=== PATIENT | male | born 1970 | race Caucasian/White ===

== ENCOUNTER 2019-12-12 20:05 | Emergency (ER) | payer MEDICARE, MEDICAID, SELFPAY ==
[2019-12-12 20:06] VITALS: BP 162/106; PULSE 65; RESP 18; TEMP 36.3; O2SAT 100; BMI 35.7
--- NOTE | 2019-12-12 20:25 | CT_ITS ---
STUDY: CT BRAIN WITHOUT CONTRAST REASON FOR EXAM: Male, 49 years old. SEIZURE, PT LIVES IN [facility] AND HAD SEIZURE WHILE IN SHOWER, FELL AND HIT HEAD, HAD 7 SEIZURES, PT ON MEDS FOR SEIZURES, PT HAD ACTIVE SEIZING WHILE ON CT TABLE RADIATION DOSAGE (If Supplied By Facility): CTDIvol = ( 44.99 ) mGy, DLP = ( 1201.06 ) mGycm TECHNIQUE: Transaxial CT imaging of the brain was performed without administration of intravenous contrast material. Individualized dose optimization techniques were used for this CT. COMPARISON: No relevant priors. FINDINGS: Normal soft tissue structures. Normal calvarium. Normal size ventricles and extra-axial spaces for the patient''s age. Normal white matter tracts of the cerebral hemispheres. Normal basal ganglia and thalami. Normal brainstem. Normal cerebellum. There is no intracranial hemorrhage. There are no findings of an acute ischemic infarction. Normal visualized paranasal sinuses. CT/Brain/Head without Contrast IMPRESSION: Normal unenhanced CT scan of the brain. Electronically Signed: Wyatt Ellis MD at 22:19 EDT , Service support ,
[2019-12-12] MEDS: LORazepam 2 MG/ML Syringe 1 MG IV ×2 (22:17→22:47)
[2019-12-12 22:18] LABS: Absolute Lymphocyte Count 1.25 X10^3/uL (0.83-4.51); Absolute Neutrophil Count 5.9 X10^3/uL (2.0-7.7); Basophil# 0.03 X10^3/uL; Basophil% 0.4 % (0-1); Hemoglobin 13.5 g/dL (13.0-16.5); Lymphocyte # 1.25 X10^3/ul (4.0); Lymphocyte % 15.6 % (19-41); Mean Corp Hgb Conc 34.6 g/dL (32-36); Mean Corpuscular Hgb 29.8 pg (27.0-32.0); Mean Corpuscular Volume 86.1 fL (80-94); Mean Platelet Vol. 8.7 fl (6.2-12.0); NRBC Flagged by Analyzer 0 % (0-5); Neutrophil # 5.87 X10^3/uL (2.7-7.7); Neutrophil % 73.1 % (47-70); Platelet Count 158 K/mm3 (150-450); RBC Distribution Width CV 11.9 % (11.6-14.6); RBC Distribution Width SD 37.2 fl (35.1-43.9); Red Blood Count 4.53 M/mm3 (4.6-6.2)
[2019-12-12 22:19] VITALS: PULSE 81; RESP 16
--- NOTE | 2019-12-12 22:39 | RAD_ITS ---
STUDY: X-RAY - BILATERAL RIBS WITH CHEST REASON FOR EXAM: Male, 49 years old. S/P SEIZURES -- C/O RIB PAIN -- BEST IMAGES POSSIBLE, PATIENT UNCOOPERATIVE TECHNIQUE - RIBS: 4 view(s) of the ribs. TECHNIQUE - CHEST: Single frontal view of the chest. COMPARISON: None. FINDINGS - RIBS : Normal visualized ribs without a demonstrated fracture. FINDINGS - CHEST: The lungs are clear and expanded. There is no demonstrated pleural abnormality. Normal size heart. Normal mediastinum and nolvia. Normal visualized pulmonary arteries. Normal visualized aortic arch and descending thoracic aorta. Normal visualized thoracic spine. Normal visualized ribs, clavicles, and shoulders. There is no demonstrated abnormality of the visualized soft tissue structures of the upper abdomen. RAD/Ribs Khalif Min 4V w/PA Chest IMPRESSION: RIBS: Normal x-ray examination of the bilateral ribs. CHEST: Normal x-ray examination of the chest. Electronically Signed: Wyatt Ellis MD at 23:38 EDT , Service support ,
[2019-12-12 22:41] LABS: ALB/GLOB Ratio 1.1 RATIO (0.9-2.4); AST(SGOT) 15 U/L (15-37); Alanine Aminotransfer ALT/SGPT 24 U/L (16-61); Albumin, Serum 3.9 g/dL (3.2-5.0); Alkaline Phosphatase 124 U/L (45-117); Anion Gap 6 (5-15); BUN 7 mg/dL (7-18); BUN/Creat Ratio 9.1 RATIO (10-20); Calcium,Total 8.5 mg/dL (8.5-10.1); Chloride 92 mmol/L (98-107); Creatinine, Serum 0.77 mg/dL (0.70-1.30); EST Glomerular Filtration Rate 114 mL/min (>60); Est Glom Filt Rate - Afr Amer 137 mL/min (>60); Estimated Creatinine Clearance 142.47 ml/min; Globulin 3.4 g/dL (2.2-4.2); Glucose 96 mg/dL (74-106); Potassium 3.9 mmol/L (3.5-5.1); Protein, Total 7.3 g/dL (6.4-8.2); Sodium Level 123 mmol/L (136-145)
[2019-12-12 22:45] LABS: Valproic Acid (Depakene) Level < 3 ug/mL (50-100)
[2019-12-12 23:29] VITALS: BP 148/97
[2019-12-12] MEDS: Lacosamide 100 MG Tablet 200 MG PO (23:50)
[2019-12-12] MEDS: ZONISAMIDE 100 MG CAPSULE 300 MG PO (23:51)
[2019-12-12] MEDS: carBAMazepine 200 MG Tablet PO (23:52)
[2019-12-13 00:24] LABS: Carbamazepine (Tegretol) 7.5 ug/mL (4.0-12.0)
[2019-12-13] MEDS: Donepezil HCl 10 MG Tablet PO (00:26)
--- NOTE | 2019-12-13 00:59 | ED.DCSUM_ITS ---
- ER Visit Summary Date of Service: 12/13/19 Chief Complaint: [Seizure] History of Present Illness: The patient is a 49 M [presents to the emergency department with seizures that started this afternoon while patient was getting a shower. He apparently fell in the shower and started to have convulsions. Shalom gibbs did hit his head and scraped his back. Twitching of arms and legs as well as eyes lasted 30 seconds or so. He has had multiple seizures since about 6:30 PM the longest of which lasted over 30 seconds and he did receive Lorazepam. Patient continues to have eye blinking and intermittent focal twitching of his extremities. Patient does have history of seizure disorder as well as depression anxiety. Patient denies any significant injury other than he will say ow from time to time. No recent illness. Patient has been admitted to [facility] in [place] where his neurologist take care of him. Per patient's sister this amount of seizure activity is unusual.] Physical Examination: [HEENT-PERRLA, EOMI. Cranial nerves II through XII grossly intact. TMs clear. Mucous membranes moist. No adenopathy. No external evidence of trauma to his head. No C-spine tenderness on palpation. Cardiovascular-regular rate and rhythm without murmur or ectopy Lungs-clear to auscultation, chest wall stable without crepitus or subcu emphysema Abdomen-normoactive bowel sounds, soft, nontender, no rebound or rigidity, no peritoneal signs. Back exam-patient has some superficial abrasion to the right posterior ribs with some tenderness palpation. Patient also some tenderness over the left posterior ribs. Neuro exam-patient does have blinking that is frequent from below both eyes. Patient has some intermittent twitching of the left upper extremity and some cpsq-[id number]-[id number] activity. Extremities-intact ?4, normal range of motion, normal pulses, atraumatic] Test Results: [CT scan of the brain without contrast was unremarkable. X-rays of the chest and ribs obtained showed no fractures or pneumothorax. EKG obtained arrival shows sinus rhythm with a ventricular rate of 69 bpm with a right bundle branch block. Chemistries showed a sodium 123, potassium 3.9, chloride 92, CO2 25, glucose 96, BUN 7 and creatinine 0.77. CBC with d ifferential showed a white count of 8.0, hemoglobin 13.5, hematocrit 39, plates 158. LFTs were unremarkable. Valproic acid level was less than 3. Tegretol level ordered and pending] Emergency Department Course and Treatment: [The line was established. Patient was given Ativan 1 mg IV followed by second dose of Ativan. Patient also was given his evening time medications including Tegretol and zonisamide and Vimpat.] Treatment Plan: [Patient's eye twitching did slow down but continued. At this point I am concerned about status epilepticus and I am concerned about his hyponatremia. Being that we do not have 24-hour EEG monitoring capability and in-house neurology availability was felt that patient would benefit from trans [facility] to [facility] where he normally gets his neurology care. Patient's family members in agreement.] Disposition: [Transfer to [facility]] Impression: [Seizure-status epilepticus Hyponatremia] This note was generated with [id number] dictation software. It may contain incorrect words, spelling, and punctuation that were not noted in review of the chart prior to signing ED Disposition - Plan for ED Patient: Referrals: Prosper Hooks MD [Primary Care Provider] -
[2019-12-13 01:16] VITALS: BP 164/91; PULSE 72; RESP 16; TEMP 36.9; O2SAT 98
[2019-12-13] MEDS: LORazepam 2 MG/ML Syringe 1 MG IV (01:29)
== END 2019-12-13 02:31 | disposition short-term general hospital (02) ==
PROVIDERS: Emergency Provider Emergency Medicine; PCP Family Medicine
DX: G40.909 Epilepsy, unspecified, not intractable, without status epilepticus (principal); E87.1 Hypo-osmolality and hyponatremia; F32.9 Major depressive disorder, single episode, unspecified
CPT/HCPCS: 70450; 71111; 80053; 80156; 80164; 85025; 96374; 96375; 99285; A4216

== ENCOUNTER 2020-01-04 16:57 | Emergency (ER) | payer MEDICARE, MEDICAID, SELFPAY ==
[2020-01-04 16:59] VITALS: BP 164/100; PULSE 56; RESP 15; TEMP 36.6; O2SAT 99; BMI 39.4
--- NOTE | 2020-01-04 17:19 | EKG12_ITS ---
Test Reason : SEIZURE Blood Pressure : / mmHG Vent. Rate : 071 BPM Atrial Rate : 071 BPM P-R Int : 200 ms QRS Dur : 090 ms QT Int : 388 ms P-R-T Axes : 068 077 073 degrees QTc Int : 421 ms Normal sinus rhythm Normal ECG Confirmed by MIRIAM PAZ, ANA LAURA ([id number]), photo editor ROSEANN FRANCOIS ([id number]) on 01/18/2020 9:39:49 A M Referred By: CM Confirmed By:ALIN PINEDA MD
--- NOTE | 2020-01-04 17:19 | CT_ITS ---
STUDY: CT BRAIN WITHOUT CONTRAST REASON FOR EXAM: Male, 49 years old. Seizures RADIATION DOSAGE (If Supplied By Facility): CTDIvol = ( 44.99 ) mGy, DLP = ( 1693.46 ) mGycm TECHNIQUE: Transaxial CT imaging of the brain was performed without administration of intravenous contrast material. Individualized dose optimization techniques were used for this CT. COMPARISON: 12 December 2019 FINDINGS: Brain parenchyma is without focal lesions, mass effect, acute intracranial hemorrhage, extra parenchymal fluid collections, hydrocephalus or herniation. The skull is intact. CT/Brain/Head without Contrast IMPRESSION: 1. Normal CT brain. Electronically Signed: Oksana Brown, at 18:19 EDT Tel , Service support ,
--- NOTE | 2020-01-04 17:31 | ED.DCSUM_ITS ---
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 Patient had increased frequency of seizures throughout the day today. He had 2 this morning and the start around 3 PM he started having having increased frequency. Patient will have deviation of his eyes up into the right and contract of his body. They last for anywhere between 15 and 45 seconds. They are not generalized tonic-clonic. They are occurring every 5 minutes or so now. Patient did receive his rescue medication intranasally with no improvement. Patient does have some medication changes for his seizure medications. His neurologist is up at [facility]. Normally patient has a seizure every week or so. His sister who is his medical decision-maker is on the way in. Patient is otherwise been in his normal state of health. No reports of any recent falls or trauma. Patient does not have any significant postictal period afterwards and returned back to his baseline immediately. Past Medical History - Allergies and Home Meds Allergies/Adverse Reactions: Allergies divalproex sodium [From Depakote] Allergy (Verified 01/04/20 16:58) PT UNSURE OF REACTION felbamate [From Felbatol] Allergy (Verified 01/04/20 16:58) PT UNSURE OF REACTION Primary Care Physician: Prosper Hooks MD [Primary Care Provider] - Past Medical History: - - Dementia, seizure disorder Lives: - - nursing home Smoking Status: Unknown if ever smoked Review of Systems General: Denies: Chills, Fever, Sweats Eyes: Denies: Visual changes - bilaterally, Diplopia ENT: Denies: Rhinorrhea, Sore throat Cardiovascular: Denies: Chest pain, Palpitations Respiratory: Denies: Dyspnea, Cough, Dyspnea on exertion Gastrointestinal: Denies: Abdominal pain, Nausea, Vomiting, Diarrhea, Melena, Hematochezia Genitourinary: Denies: Dysuria, Hematuria, Frequency Musculoskeletal: Denies: Back pain, Extremity Pain Skin: Denies: Rash, Wounds Neurological: Reports: - - Seizures. Denies: Headache, Weakness, Numbness Physical Exam Vital Signs/Narrative: Vital Signs Temp Pulse Resp BP Pulse Ox 01/04/20 16:59 97.8 F 56 L 15 164/100 H 99 Inital Vital Signs reviewed: Yes General: Well nourished, Well developed, Obese, No Acute Distress Head: Normocephalic, Atraumatic Eyes: Perrl, EOMI ENT: Moist mucous membranes, No rhinorrhea Neck: Supple, Nontender, No JVD Cardiovascular: Regular rate, Regular rhythm, No murmurs Respiratory: No distress, CTA bilaterally, Chest nontender Abdomen: Soft, Nontender, Nondistended, Normal bowel sounds Back: Nontender, Normal Inspection Extremities: Nontender, No edema Skin: Normal color, No rash Neurological: Alert, Cranial nerves II-XII grossly intact, Normal Strength, Normal Sensation, Disoriented - At baseline Psychological: Normal affect, Normal Mood Diagnostic/Tx/Re-eval Chest X-Ray - ED: 1 View, Read by ED Physician, Read by Radiologist, No Acute Disease Clinical Impression(s) from Imaging Studies Brain CT 01/04/20 17:19 IMPRESSION: 1. Normal CT brain. Electronically Signed: Oksana Brown at 18:19 EDT Tel , Service support , Chest X-Ray 01/04/20 18:03 IMPRESSION: Normal x-ray examination of the chest. Electronically Signed: Oksana Brown, at 18:17 EDT Tel , Service support , Laboratory Data 01/04/20 01/04/20 01/04/20 17:25 17:25 17:45 WBC 6.1 RBC 4.32 L Hgb 12.9 L Hct 38.6 L MCV 89.4 MCH 29.9 MCHC 33.4 RDW Std Deviation 39.8 RDW Coeff of Aria 12.2 Plt Count 201 MPV 9.2 Immature Gran % (Auto) 0.700 Neut % (Auto) 73.4 H Lymph % (Auto) 15.3 L [place] % (Auto) 9.9 Eos % (Auto) 0.2 Baso % (Auto) 0.5 Absolute Neuts (auto) 4.5 Absolute Lymphs (auto) 0.94 Nucleated RBC % 0 Sodium 133 L Potassium 4.2 Chloride 100 Carbon Dioxide 28.0 Anion Gap 5 BUN 7 Creatinine 0.84 Estim Creat Clear Calc 116.76 Est GFR (MDRD) Af Amer 124 Est GFR (MDRD) Non-Af 102 BUN/Creatinine Ratio 8.3 L Glucose 101 Calcium 8.7 Urine Color Yellow Urine Clarity Sl. Cloudy Urine pH 7.0 Ur Specific [place] 1.010 Urine Protein Negative Urine Glucose (UA) Normal Urine Ketones Negative Urine Occult Blood Negative Urine Nitrite Negative Urine Bilirubin Negative Urine Urobilinogen Normal Ur Leukocyte Esterase Negative Urine RBC 0 SEEN Urine WBC 0 SEEN Ur Squamous Epith Cells 0-5 SEEN Urine Bacteria 0 SEEN Urine Mucus 0 SEEN - Rhythm Strip Rhythm Strip: Sinus Rhythm Rate: 71 Ectopy: None - EKG Initial EKG Interpretation: Sinus Rhythm, - - Sinus rhythm at a rate of 71 Normal axis Normal intervals Normal ST segments - Medical Decision Making Patient is evaluated for increased frequency of seizures. His seizures appear to be partial in nature. Patient has multiple witnessed seizures in the ER despite receiving IV Ativan. He does require redose of IV Ativan. In between he does return to his neurologic baseline. nursing home and sister state that this is not normal for him to have this many seizures. Metabolic work-up including a head CT is largely negative. The exact cause of his presentation/increased frequency of seizures not clear however I wonder if it could be related to his recent medication change. Discussed with neurology at [facility], Dr. Hearn, who will reluctantly accept the patient. She is concerned as patient was having frequent seizures even on the day he was discharged that this might actually be his baseline. Family is comfortable with plan of care however. Neurology does not recommend bolusing any further medications at this time. Patient is protecting his airway and does not require intubation for status epilepticus. ED Disposition - Plan for ED Patient: Disposition: [facility] - Main Diagnosis: Recurrent seizures Referrals: Prosper Hooks MD [Primary Care Provider] -
[2020-01-04] MEDS: LORazepam 2 MG/ML Syringe 1 MG IV (17:32)
[2020-01-04 17:39] LABS: Absolute Lymphocyte Count 0.94 X10^3/uL (0.83-4.51); Absolute Neutrophil Count 4.5 X10^3/uL (2.0-7.7); Basophil# 0.03 X10^3/uL; Basophil% 0.5 % (0-1); Eosinophil# 0.01 X10^3/uL; Eosinophils% 0.2 % (0-5); Hematocrit 38.6 % (40-54); Hemoglobin 12.9 g/dL (13.0-16.5); Lymphocyte # 0.94 X10^3/ul (4.0); Lymphocyte % 15.3 % (19-41); Mean Corp Hgb Conc 33.4 g/dL (32-36); Mean Corpuscular Hgb 29.9 pg (27.0-32.0); Mean Corpuscular Volume 89.4 fL (80-94); Mean Platelet Vol. 9.2 fl (6.2-12.0); Monocyte# 0.61 X10^3/uL; Monocyte% 9.9 % (0-10); NRBC Flagged by Analyzer 0 % (0-5); Neutrophil # 4.51 X10^3/uL (2.7-7.7); Neutrophil % 73.4 % (47-70); Platelet Count 201 K/mm3 (150-450); RBC Distribution Width CV 12.2 % (11.6-14.6); RBC Distribution Width SD 39.8 fl (35.1-43.9); Red Blood Count 4.32 M/mm3 (4.6-6.2); White Blood Count 6.1 K/mm3 (4.4-11.0)
[2020-01-04 17:50] VITALS: PULSE 62; RESP 17; O2SAT 99
[2020-01-04 17:50] LABS: Bacteria 0 SEEN /hpf (None Seen); Mucous, Urine 0 SEEN /hpf (<or=2+); Red Blood Cells-Urine 0 SEEN /hpf (0-5); White Blood Cells 0 SEEN /hpf (0-5)
[2020-01-04 18:00] LABS: Anion Gap 5 (5-15); BUN 7 mg/dL (7-18); BUN/Creat Ratio 8.3 RATIO (10-20); Calcium,Total 8.7 mg/dL (8.5-10.1); Chloride 100 mmol/L (98-107); Creatinine, Serum 0.84 mg/dL (0.70-1.30); EST Glomerular Filtration Rate 102 mL/min (>60); Est Glom Filt Rate - Afr Amer 124 mL/min (>60); Estimated Creatinine Clearance 116.76 ml/min; Glucose 101 mg/dL (74-106); Potassium 4.2 mmol/L (3.5-5.1); Sodium Level 133 mmol/L (136-145)
--- NOTE | 2020-01-04 18:03 | RAD_ITS ---
STUDY: X-RAY CHEST REASON FOR EXAM: Male, 49 years old. SEIZURE TECHNIQUE: Frontal view of the chest COMPARISON: None. FINDINGS: The lungs are clear and expanded. There is no demonstrated pleural abnormality. Normal size heart. Normal mediastinum and nolvia. Normal visualized pulmonary arteries. Normal visualized aortic arch and descending thoracic aorta. Normal visualized thoracic spine. Normal visualized ribs, clavicles, and shoulders. There is no demonstrated abnormality of the visualized soft tissue structures of the upper abdomen. RAD/Chest 1 View (Portable) IMPRESSION: Normal x-ray examination of the chest. Electronically Signed: Oksana Brown, at 18:17 EDT Tel , Service support ,
[2020-01-04 18:16] LABS: Color, Urine Yellow (Yellow); Glucose, Dipstick Normal (Normal); Ketone-Dipstick Negative (Negative); Leukocyte Esterase-Dipstick Negative /ul (Negative); Nitrite-Dipstick Negative (Negative); Occult Blood-Urine Negative /ul (Negative); Protein-Dipstick Negative (Negative); Urine Bilirubin Dipstick Negative (Negative); Urine Clarity Sl. Cloudy (Clear); Urine Urobilinogen Normal (Normal)
[2020-01-04 18:30] LABS: Squamous Epithelial Cells - UA 0-5 SEEN /hpf (0-5)
[2020-01-04] MEDS: LORazepam 2 MG/ML Syringe IV (20:26)
[2020-01-04 20:30] VITALS: BP 155/69; PULSE 66; RESP 12; O2SAT 99
[2020-01-04 20:41] VITALS: BP 155/69; PULSE 66; RESP 12; O2SAT 99
--- NOTE | 2020-01-04 21:04 | ED.RN ---
sister reports pt had fall this am.
== END 2020-01-04 21:12 | disposition short-term general hospital (02) ==
LOC: ED 17:37
PROVIDERS: Emergency Provider Emergency Medicine; PCP Family Medicine
DX: G40.909 Epilepsy, unspecified, not intractable, without status epilepticus (principal); F03.90 Unspecified dementia, unspecified severity, without behavioral disturbance, psychotic disturbance, mood disturbance, and anxiety; E66.9 Obesity, unspecified; Z79.82 Long term (current) use of aspirin
CPT/HCPCS: 70450; 71045; 80048; 81001; 85025; 93005; 96374; 96376; 99283; 99285; A4216

== ENCOUNTER 2021-08-14 09:01 | Inpatient (IN) | payer MEDICARE, MEDICAID, SELFPAY ==
[2021-08-14] VITALS (13 sets, daily range): BP systolic 90–141; BP diastolic 54–84; PULSE 57–84; RESP 13–20; TEMP 36.1–36.6; O2SAT 91–98; BMI 37.3
--- NOTE | 2021-08-14 09:13 | EKG12_ITS ---
Test Reason : ALT LOC Blood Pressure : / mmHG Vent. Rate : 060 BPM Atrial Rate : 060 BPM P-R Int : 184 ms QRS Dur : 092 ms QT Int : 412 ms P-R-T Axes : 010 036 043 degrees QTc Int : 412 ms Normal sinus rhythm Normal ECG Confirmed by SOFIA TINOCO MD ([id number]), video effects editor MARGARITA ARMENTA ([id number]) on 08/15/2021 10:12:28 AM Referred By: CM Confirmed By:SOFIA TINOCO MD
--- NOTE | 2021-08-14 09:15 | RAD_ITS ---
STUDY: X-RAY CHEST REASON FOR EXAM: Male, 50 years old. cough TECHNIQUE: Single AP portable view of the chest. COMPARISON: 01/04/2020 FINDINGS: Or inspiration with some bibasilar atelectasis. There is no demonstrated pleural abnormality. There is moderate cardiac enlargement. Normal mediastinum and nolvia. Normal visualized pulmonary arteries. Normal visualized aortic arch and descending thoracic aorta. Normal visualized thoracic spine. Normal visualized ribs, clavicles, and shoulders. There is no demonstrated abnormality of the visualized soft tissue structures of the upper abdomen. RAD/Chest 1 View (Portable) IMPRESSION: Poor inspiration with some bibasilar atelectasis. Electronically Signed: Roberto Ibarra MD at 9:58 EDT ,
--- NOTE | 2021-08-14 09:16 | CT_ITS ---
STUDY: CT BRAIN WITHOUT CONTRAST REASON FOR EXAM: Male, 50 years old. confusion RADIATION DOSAGE (If Supplied By Facility): CTDIvol = ( 44.99 ) mGy, DLP = ( 829.85 ) mGycm TECHNIQUE: Transaxial CT imaging of the brain was performed without administration of intravenous contrast material. Individualized dose optimization techniques were used for this CT. COMPARISON: 01/04/2020 FINDINGS: Normal soft tissue structures. Normal calvarium. Normal size ventricles and extra-axial spaces for the patient''s age. Normal white matter tracts of the cerebral hemispheres. Normal basal ganglia and thalami. Normal brainstem. Normal cerebellum. There is no intracranial hemorrhage. There are no findings of an acute ischemic infarction. Normal visualized paranasal sinuses. CT/Brain/Head without Contrast IMPRESSION: Normal unenhanced CT scan of the brain. Electronically Signed: Roberto Ibarra MD at 9:51 EDT ,
--- NOTE | 2021-08-14 09:24 | EX.ED.DYSGE1 ---
HPI <CRISPIN Daniel - Last Filed: 08/14/21 14:54> History of Present Illness Chief Complaint: Alt LOC Narrative Narrative: 50-year-old male with history of MRDD who lives in a [facility], also history of seizures, hypertension, anxiety presents to the emergency department with altered mental status, weakness. Patient does have history of seizures, they are unsure he had a seizure today or not. However patient was more lethargic this morning, it took a long time for the [facility] to get him dressed which is abnormal, the patient was walking, took 5 steps and then collapsed. They are concerned secondary to his fatigue and lethargic. Denies any recent illnesses, denies any drug use, was alert and oriented and acting appropriate yesterday. PFS <CRISPIN Daniel - Last Filed: 08/14/21 14:54> [facility] Medical History (Updated 08/15/21 @ 14:[address] Harriet Mary, ) Anxiety Chronic anemia Chronic hyponatremia Dementia Depression Developmental disability Seizures Home Medications donepezil 5 mg PO DAILY@199912/12/19 [History Last Taken 01/03/20] escitalopram oxalate 20 mg PO DAILY@0812/12/19 [History Last Taken 01/04/20] ammonium lactate 1 applic TP BID 01/04/20 [History Last Taken 01/04/20] aspirin 81 mg PO DAILY@199901/04/20 [History Last Taken 01/03/20] Epidiolex 1 mg PO TID 08/14/21 [History Last Taken Unknown] cholecalciferol (vitamin D3) [Vitamin D3] 50 mcg PO DAILY 08/14/21 [History Last Taken Unknown] clobazam [Onfi] 20 mg PO DAILY 08/14/21 [History Last Taken Unknown] clobazam [Onfi] 30 mg PO QHS 08/14/21 [History Last Taken Unknown] docusate sodium 100 mg PO BID 08/14/21 [History Last Taken Unknown] lacosamide [Vimpat] 200 mg PO BID 08/14/21 [History Last Taken Unknown] lorazepam 1 mg PO DAILY PRN 08/14/21 [History Last Taken Unknown] meloxicam 15 mg PO DAILY 08/14/21 [History Last Taken Unknown] nystatin-triamcinolone 1 applic TOPICAL BID PRN 08/14/21 [History Last Taken Unknown] olopatadine 1 drp EACH EYE DAILY 08/14/21 [History Last Taken Unknown] rufinamide [Banzel] 800 mg PO BID 08/14/21 [History Last Taken Unknown] zonisamide 300 mg PO BID 08/14/21 [History Last Taken Unknown] Allergy/AdvReac Type Severity Reaction Status Date / Time divalproex sodium Allergy PT UNSURE Verified 01/04/20 16:58 [From Depakote] OF REACTION felbamate [From Felbatol] Allergy PT UNSURE Verified 01/04/20 16:58 OF REACTION Social History (Updated 08/14/21 @ 15:[address] Harriet Mary, DO) household members: other details: nursing home housing: other details: nursing home Smoking Status: Never smoker alcohol intake: never substance use type: does not use ROS <CRISPIN Daniel - Last Filed: 08/14/21 14:54> ROS ED ROS Narrative Due to the lethargy, mental capacity the patient, review of symptoms cannot be completed at this time EXAM <CRISPIN Daniel - Last Filed: 08/14/21 14:54> Physical Exam Narrative Exam Narrative: Vital signs reviewed. Patient is lethargic on exam. Blood pressure slightly low with 90s over 50s. Patient does open his eyes however does not answer which is abnormal for him. HEET: Head normocephalic atraumatic, TMs clear bilaterally. Posterior pharynx is clear, dry mucous membranes. Nares clear bilaterally. Neck: Supple with no lymphadenopathy or tenderness. No signs of meningismus, negative jolt sign. Cardiac: Regular rate and rhythm no murmurs gallops or rubs, equal peripheral pulses bilaterally. Respiratory: Lungs clear to auscultation bilaterally. No chest tenderness. Abdomen: Soft, nontender, nondistended. No abdominal bruit or pulsatile masses. No hepatosplenomegaly Extremities: No peripheral edema, no signs of gross trauma or deformity. Active full range of motion of all extremities. Neuro: Cranial nerves II through XII intact, no focal neurological deficits. Patient moving all extremities. Negative for any facial droop. Skin: Clean dry and intact with no rash, purpura, petechiae, vesicles or pustules. Backslash flank: No CVA tenderness, no midline spinal tenderness, no deformity. Psych: Normal mood and affect. No SI, HI or acute psychosis. Const Vital Signs: 08/14/21 09:03 08/14/21 09:07 08/14/21 09:16 Temperature 97.5 F L 97.9 F Temperature Source Temporal Temporal Pulse Rate 63 61 61 Respiratory Rate 14 14 16 Blood Pressure 90/58 L 90/58 L Blood Pressure Mean 68 68 Pulse Ox 91 92 92 Oxygen Delivery Method Room Air Room Air Room Air Oxygen Flow Rate (L/min) 08/14/21 10:02 08/14/21 10:07 08/14/21 11:00 Temperature 97.2 F L 97.2 F L Temperature Source Temporal Temporal Pulse Rate 61 62 59 L Respiratory Rate 13 15 16 Blood Pressure 117/80 117/80 137/79 H Blood Pressure Mean 92 92 98 Pulse Ox 98 98 98 Oxygen Delivery Method Room Air Room Air Nasal Cannula Oxygen Flow Rate (L/min) 2 Positive well nourished, well developed and obese General Appearance ED: well developed Nutritional Appearance: obese <Dr. Koki Thompson DO - Last Filed: 08/16/21 16:28> Physical Exam Const Vital Signs: 08/14/21 09:03 08/14/21 09:07 08/14/21 09:16 Temperature 97.5 F L 97.9 F Temperature Source Temporal Temporal Pulse Rate 63 61 61 Respiratory Rate 14 14 16 Blood Pressure 90/58 L 90/58 L Blood Pressure Mean 68 68 Pulse Ox 91 92 92 Oxygen Delivery Method Room Air Room Air Room Air Oxygen Flow Rate (L/min) 08/14/21 10:02 08/14/21 10:07 08/14/21 11:00 Temperature 97.2 F L 97.2 F L Temperature Source Temporal Temporal Pulse Rate 61 62 59 L Respiratory Rate 13 15 16 Blood Pressure 117/80 117/80 137/79 H Blood Pressure Mean 92 92 98 Pulse Ox 98 98 98 Oxygen Delivery Method Room Air Room Air Nasal Cannula Oxygen Flow Rate (L/min) 2 MDM <CRISPIN Daniel - Last Filed: 08/14/21 14:54> MDM MDM Narrative Medical decision making narrative: Patient arrives lethargic, slightly hypotensive, is arousable by his tactile stimuli. Patient arrives to the emergency department with altered mental status, lethargic, weakness. Patient did receive a full work-up, patient's chest x-ray showed poor inspiration with some bibasilar atelectasis, patient's brain CT showed a normal CT scan of the brain. Patient received multiple laboratory values, patient CBC was unremarkable, patient's chemistry showed some renal insufficiency with a creatinine of 1.56, GFR 50 with a lactic acid of 3.6. I do believe that this is causing some of the weakness. Patient's kidney function is worse. Patient remains lethargic. Family and I spoke at length, they would like him admitted up to [facility] secondary to his neurologist being there. I did speak with her neurologist, he agrees that this is not a neurology issue however he would like them to go to [facility], however they refused secondary to not having any neurology. Patient then was accepted to [facility], and due to the wait time, the patient be admitted here to the hospital. Patient will be admitted under Dr. Mary, patient's neurologic exam remains the same, patient still remains lethargic. Vital signs are stable. Patient was placed on 2 L of nasal cannula oxygen which did improve because the ABG showed slight hypoxia. Patient stable for admission Lab Data Attestation: I reviewed the patient's lab results. Labs: Laboratory Results - last 24 hr 08/14/21 08/14/21 08/14/21 09:20 09:20 09:20 WBC 9.2 RBC 4.14 L Hgb 12.5 L Hct 38.2 L MCV 92.3 MCH 30.2 MCHC 32.7 RDW Std Deviation 40.5 RDW Coeff of Aria 11.9 Plt Count 188 MPV 9.0 Immature Gran % (Auto) 1.000 H Neut % (Auto) 70.0 Lymph % (Auto) 13.6 L [place] % (Auto) 8.6 Eos % (Auto) 6.3 H Baso % (Auto) 0.5 Absolute Neuts (auto) 6.5 Absolute Lymphs (auto) 1.25 Nucleated RBC % 0 Sodium 133 L Potassium 3.3 L Chloride 98 Carbon Dioxide 25.0 Anion Gap 10 BUN 10 Creatinine 1.56 H Estim Creat Clear Calc 71.39 Est GFR (MDRD) Af Amer 61 Est GFR (MDRD) Non-Af 50 L BUN/Creatinine Ratio 6.4 L Glucose 108 H Lactic Acid 3.6 H* Calcium 9.0 Total Bilirubin 0.30 Direct Bilirubin 0.06 AST 14 L ALT 20 Alkaline Phosphatase 97 Ammonia Total Protein 7.0 Albumin 3.8 Globulin 3.2 Albumin/Globulin Ratio 1.2 Lipase 233 08/14/21 09:20 WBC RBC Hgb Hct MCV MCH MCHC RDW Std Deviation RDW Coeff of Aria Plt Count MPV Immature Gran % (Auto) Neut % (Auto) Lymph % (Auto) [place] % (Auto) Eos % (Auto) Baso % (Auto) Absolute Neuts (auto) Absolute Lymphs (auto) Nucleated RBC % Sodium Potassium Chloride Carbon Dioxide Anion Gap BUN Creatinine Estim Creat Clear Calc Est GFR (MDRD) Af Amer Est GFR (MDRD) Non-Af BUN/Creatinine Ratio Glucose Lactic Acid Calcium Total Bilirubin Direct Bilirubin AST ALT Alkaline Phosphatase Ammonia 26.0 Total Protein Albumin Globulin Albumin/Globulin Ratio Lipase ABG Data ABG results: ABG 08/14/21 10:00 Specimen Type ART Sample Site L Radial pH 7.40 Bicarbonate Actual 22.8 Total CO2 24 Base Excess -2 O2 Saturation 95 O2 % 21 ABG pCO2 36.8 ABG pO2 73 L David Test Positive Radiography Diagnostic Testing: Clinical Impression(s) from Imaging Studies Chest X-Ray 08/14/21 09:15 IMPRESSION: Poor inspiration with some bibasilar atelectasis. Electronically Signed: Roberto Ibarra MD at 9:58 EDT Reading Location ID and State: [id number] / [place] Tel , Service support , Brain CT 08/14/21 09:16 IMPRESSION: Normal unenhanced CT scan of the brain. Electronically Signed: Roberto Ibarra MD at 9:51 EDT , EKG Normal sinus rhythm: Attestation: I personally reviewed and interpreted this EKG as follows: Comments: Normal sinus rhythm, rate of 60 bpm OR interval 184 ms, QRS duration 92 ms, no acute ST elevation, no acute infarct noted. <Dr. Koki Thompson, DO - Last Filed: 08/16/21 16:28> [facility] Narrative Medical decision making narrative: I have personally performed a face to face assessment of the patient and have reviewed the ELYSIA Note. I performed a substantive portion of the visit including all aspects of the following. My garcia findings include: History is patient is a 50-year-old male with history of developmental delay and seizure disorder presenting for altered mental status and somnolence. Patient is presenting from [facility]. On arrival to the ER patient is obtunded and only responds to physical stimuli. No report of any falls or seizures. No signs of trauma on physical exam. GCS is 14. Clear breath sounds. Heart regular rate and rhythm. No focal neurologic deficits appreciated. A&O to self only. Work-up looking for cause of his altered mental status is performed. He remains hemodynamically stable. CBC is largely unremarkable. He has mild anemia of 12.5 which is nonspecific. He does have a slight left shift. Creatinine is elevated at 1.56. Do not have a prior to compare to. Patient clinically does appear dehydrated we will presume that this is acute. He has an elevated lactate of 3.6. Chest x-ray and CT the brain did not show any acute process. Family is requesting that we do not perform a straight catheterization and wait for him to urinate on his own. He is given IV fluids in the emergency room. There is no clear source of infection I suspect this is all dehydration related. Will defer antibiotics at this time. While family would like him admitted to [facility], they do not currently have a bed available so he is admitted to [facility] in the meantime. He remains hemodynamically stable in the emergency room. Other additions or changes: [None] Lab Data Attestation: I reviewed the patient's lab results. Labs: Laboratory Results - last 24 hr 08/14/21 08/14/21 08/14/21 09:20 09:20 09:20 WBC 9.2 RBC 4.14 L Hgb 12.5 L Hct 38.2 L MCV 92.3 MCH 30.2 MCHC 32.7 RDW Std Deviation 40.5 RDW Coeff of Aria 11.9 Plt Count 188 MPV 9.0 Immature Gran % (Auto) 1.000 H Neut % (Auto) 70.0 Lymph % (Auto) 13.6 L [place] % (Auto) 8.6 Eos % (Auto) 6.3 H Baso % (Auto) 0.5 Absolute Neuts (auto) 6.5 Absolute Lymphs (auto) 1.25 Nucleated RBC % 0 Sodium 133 L Potassium 3.3 L Chloride 98 Carbon Dioxide 25.0 Anion Gap 10 BUN 10 Creatinine 1.56 H Estim Creat Clear Calc 71.39 Est GFR (MDRD) Af Amer 61 Est GFR (MDRD) Non-Af 50 L BUN/Creatinine Ratio 6.4 L Glucose 108 H Lactic Acid 3.6 H* Calcium 9.0 Total Bilirubin 0.30 Direct Bilirubin 0.06 AST 14 L ALT 20 Alkaline Phosphatase 97 Ammonia Total Protein 7.0 Albumin 3.8 Globulin 3.2 Albumin/Globulin Ratio 1.2 Lipase 233 08/14/21 09:20 WBC RBC Hgb Hct MCV MCH MCHC RDW Std Deviation RDW Coeff of Aria Plt Count MPV Immature Gran % (Auto) Neut % (Auto) Lymph % (Auto) [place] % (Auto) Eos % (Auto) Baso % (Auto) Absolute Neuts (auto) Absolute Lymphs (auto) Nucleated RBC % Sodium Potassium Chloride Carbon Dioxide Anion Gap BUN Creatinine Estim Creat Clear Calc Est GFR (MDRD) Af Amer Est GFR (MDRD) Non-Af BUN/Creatinine Ratio Glucose Lactic Acid Calcium Total Bilirubin Direct Bilirubin AST ALT Alkaline Phosphatase Ammonia 26.0 Total Protein Albumin Globulin Albumin/Globulin Ratio Lipase ABG Data ABG results: ABG 08/14/21 10:00 Specimen Type ART Sample Site L Radial pH 7.40 Bicarbonate Actual 22.8 Total CO2 24 Base Excess -2 O2 Saturation 95 O2 % 21 ABG pCO2 36.8 ABG pO2 73 L David Test Positive Radiography Chest X-Ray - ED: 1 View, Read by ED Physician, Read by Radiologist and No Acute Disease Diagnostic Testing: Clinical Impression(s) from Imaging Studies Chest X-Ray 08/14/21 09:15 IMPRESSION: Poor inspiration with some bibasilar atelectasis. Electronically Signed: Roberto Ibarra MD at 9:58 EDT , Brain CT 08/14/21 09:16 IMPRESSION: Normal unenhanced CT scan of the brain. Electronically Signed: Roberto Ibarra MD at 9:51 EDT , Discharge Plan Dx/Rx/DC Orders Clinical Impression: Acute kidney injury, Encephalopathy, Acidosis, lactic, Acute dehydration Disposition Disposition: Acute Care Hospital [facility]
[2021-08-14 09:29] LABS: Absolute Lymphocyte Count 1.25 X10^3/uL (0.83-4.51); Absolute Neutrophil Count 6.5 X10^3/uL (2.0-7.7); Basophil# 0.05 X10^3/uL; Basophil% 0.5 % (0-1); Eosinophil# 0.58 X10^3/uL; Eosinophils% 6.3 % (0-5); Hematocrit 38.2 % (40-54); Hemoglobin 12.5 g/dL (13.0-16.5); Lymphocyte # 1.25 X10^3/ul (0.83-4.51); Lymphocyte % 13.6 % (19-41); Mean Corp Hgb Conc 32.7 g/dL (32-36); Mean Corpuscular Hgb 30.2 pg (27.0-32.0); Mean Corpuscular Volume 92.3 fL (80-94); Monocyte# 0.79 X10^3/uL; Monocyte% 8.6 % (0-10); NRBC Flagged by Analyzer 0 % (0-5); Neutrophil # 6.46 X10^3/uL (2.7-7.7); Platelet Count 188 K/mm3 (150-450); RBC Distribution Width CV 11.9 % (11.6-14.6); RBC Distribution Width SD 40.5 fl (35.1-43.9); Red Blood Count 4.14 M/mm3 (4.6-6.2); White Blood Count 9.2 K/mm3 (4.4-11.0)
[2021-08-14 09:46] LABS: ALB/GLOB Ratio 1.2 RATIO (0.9-2.4); AST(SGOT) 14 U/L (15-37); Alanine Aminotransfer ALT/SGPT 20 U/L (16-61); Albumin, Serum 3.8 g/dL (3.2-5.0); Alkaline Phosphatase 97 U/L (45-117); Anion Gap 10 (5-15); BUN 10 mg/dL (7-18); BUN/Creat Ratio 6.4 RATIO (10-20); Bilirubin, Direct 0.06 mg/dL (0.00-0.30); Chloride 98 mmol/L (98-107); Creatinine, Serum 1.56 mg/dL (0.70-1.30); EST Glomerular Filtration Rate 50 mL/min (>60); Est Glom Filt Rate - Afr Amer 61 mL/min (>60); Estimated Creatinine Clearance 71.39 ml/min; Globulin 3.2 g/dL (2.2-4.2); Glucose 108 mg/dL (74-106); Lipase 233 U/L (73-393); Potassium 3.3 mmol/L (3.5-5.1); Sodium Level 133 mmol/L (136-145)
[2021-08-14 09:55] LABS: Lactic Acid 3.6 mmol/L (0.4-1.9)
[2021-08-14] MEDS: 0.9% Normal Saline 1,000 ML 1000 ML IV (10:13)
[2021-08-14 11:10] LABS: Allen Test Positive; Base Excess -2 mmol/L (-2 to +2); Bicarbonate 22.8 mmol/L (22-26); Blood Gas Specimen Type ART; FI02 21; PO2 73 mmHG (75-100); SITE L Radial; SO2 95 % (95-99); Total Carbon Dioxide 24 mmol/L; pCO2 36.8 mmHg (35-45)
--- NOTE | 2021-08-14 11:42 | NURSING ---
CALLED [facility] THEY ARE WAITING TO HEAR BACK FROM DR STANLEY THE ADMITTING PHYSICIAN
--- NOTE | 2021-08-14 11:55 | ED.RN ---
pt told family that had to go to the bathroom pt more awake for longer periods but still needing cueing to remain on task and focused. knees wobbly when stood at bedside to use urinal but unable to void. back to bed and able to get legs back into bed on own and to scoot self up in bed. will monitor. pt perked up when asked if wanted to watch tv. still waiting on bed from [facility]
--- NOTE | 2021-08-14 14:26 | ED.RN ---
PT IV LEAKING AND NOTED TO BE INFILTRATED WITH MOD EMEMA. IV DC'D AND WARM COMPRESS APPLIED. PT UNABLE TO VOID. Talking clearer and drinking diet coke now asking for food.
--- NOTE | 2021-08-14 14:57 | HP.PCM.HOS_ITS ---
HPI - General HPI Narrative MICHAEL MAHONEY, is a 50 M who presented to the emergency department from the snf which she resides on 07/25/2021 with an altered level of consciousness. The patient has a known history of seizures and per his sister and niece who are at the bedside upon my exam he was having increased somnolence confusion, garbled speech, and generalized weakness today at his snf. He does have a history of seizures and is on a significant amount of medications for this however they are unclear whether or not he has had seizures today. He evidently was more lethargic this morning when he awoke and it took him a long time at the snf to get dressed which is atypical for him. He evidently was walking and took 5 steps then collapsed. Family and the snf were concerned about his fatigue and lethargy. Evidently yesterday he was alert and at his baseline functionally. He has no contacts of which they are aware. He is really unable to give me any history but was sitting up eating a ham sandwich upon my exam. Family states at baseline he is communicative and fairly functional. Vital signs emergency department showed a temperature of 97.5. Initial blood pressure was 90/58 but with IV fluids his pressure has improved to 127/84. Heart rate was 63, respiratory 16, and oxygen saturation was 98% on room air. His CBC shows a chronic stable anemia. No left shift is present. He does have a eosinophilia with a 6.3% eosinophil count. This appears to be different from baseline. An ABG was obtained with his mental status and was unremarkable with pH of 7.4 a PCO2 of 36.8 a PO2 of 73 on room air. His chemistry profile shows mild hyponatremia which is chronic for him. Current sodium is 133. Potassium was low at 3.3 and his serum creatinine was elevated at 1.56. His baseline serum creatinine runs from 0.7-0.9. His lactic acid was 3.6. His LFTs were unremarkable. His EKG shows normal sinus rhythm without any changes consistent with acute ischemia. Chest x-ray shows poor effort with some bibasilar atelectasis. CT of his head was unremarkable. Orthostatic vitals were unable to be performed secondary to patient's mental status. A UA was ordered and pending on admission as the patient had not been able to yet produce a urine and family did not want the patient straight cath. The patient was treated with IV fluids in the emergency department. Family desired transfer to [facility] as this is where his neurologist is located however the emergency department discussed the case with neurology and they did not feel neurology needed to really be involved and suspected that this was more related to dehydration and other pathology. The patient has been ac cepted for transfer by Dr. Stringer at [place] however no beds are currently available and we were contacted for admission in the meantime. Family does express that if he is clinically back to baseline they are okay with discharge from this institution, however if he is not clinically improve they prefer transfer to outside facility. [facility] Medical History (Updated 08/14/21 @ 15:[address] Harriet Mary, DO) Anxiety Chronic anemia Chronic hyponatremia Dementia Depression Developmental disability Seizures Home Medications donepezil 5 mg PO DAILY@199912/12/19 [History Last Taken 01/03/20] escitalopram oxalate 20 mg PO DAILY@79912/12/19 [History Last Taken 01/04/20] ammonium lactate 1 applic TP BID 01/04/20 [History Last Taken 01/04/20] aspirin 81 mg PO DAILY@199901/04/20 [History Last Taken 01/03/20] cannabidiol [Epidiolex] 1 mg PO TID 08/14/21 [History Last Taken Unknown] cholecalciferol (vitamin D3) [Vitamin D3] 50 mcg PO DAILY 08/14/21 [History Last Taken Unknown] clobazam [Onfi] 20 mg PO DAILY 08/14/21 [History Last Taken Unknown] clobazam [Onfi] 30 mg PO QHS 08/14/21 [History Last Taken Unknown] docusate sodium 100 mg PO BID 08/14/21 [History Last Taken Unknown] lacosamide [Vimpat] 200 mg PO BID 08/14/21 [History Last Taken Unknown] lorazepam 1 mg PO DAILY PRN 08/14/21 [History Last Taken Unknown] meloxicam 15 mg PO DAILY 08/14/21 [History Last Taken Unknown] nystatin-triamcinolone 1 applic TOPICAL BID PRN 08/14/21 [History Last Taken Unknown] olopatadine 1 drp EACH EYE DAILY 08/14/21 [History Last Taken Unknown] rufinamide [Banzel] 800 mg PO BID 08/14/21 [History Last Taken Unknown] zonisamide 300 mg PO BID 08/14/21 [History Last Taken Unknown] Allergy/AdvReac Type Severity Reaction Status Date / Time divalproex sodium Allergy PT UNSURE Verified 01/04/20 16:58 [From Depakote] OF REACTION felbamate [From Felbatol] Allergy PT UNSURE Verified 01/04/20 16:58 OF REACTION no significant family history no surgical history Social History (Updated 08/14/21 @ 15:[address] Harriet Mary, DO) household members: other details: intermediate housing: other details: intermediate Smoking Status: Never smoker alcohol intake: never substance use type: does not use ROS Review of Systems ROS Unobtainable: due to mental condition Vital Signs Vital Signs Vital Signs: 08/14/21 09:03 08/14/21 09:07 08/14/21 09:16 Temperature 97.5 F L 97.9 F Temperature Source Temporal Temporal Pulse Rate 63 61 61 Respiratory Rate 14 14 16 Blood Pressure 90/58 L 90/58 L Blood Pressure Mean 68 68 Pulse Ox 91 92 92 Oxygen Delivery Method Room Air Room Air Room Air Oxygen Flow Rate (L/min) 08/14/21 10:02 08/14/21 10:07 08/14/21 11:00 Temperature 97.2 F L 97.2 F L Temperature Source Temporal Temporal Pulse Rate 61 62 59 L Respiratory Rate 13 15 16 Blood Pressure 117/80 117/80 137/79 H Blood Pressure Mean 92 92 98 Pulse Ox 98 98 98 Oxygen Delivery Method Room Air Room Air Nasal Cannula Oxygen Flow Rate (L/min) 2 Weight Weight: 142.882 kg Body Mass Index (BMI) 37.3 Physical Exam Const alert, no apparent distress, healthy appearing and well nourished Constitutional Narrative: Obese middle-aged white male sitting up in bed eating a sandwich, sister and niece are at the bedside, patient is not really all that communicative right now however does answer a few questions, unable to get a good review of systems HEENT normocephalic, head/scalp atraumatic and moist oral mucous membranes HEENT Narrative: Oropharynx is small, Mallampati is 3, no thrush, hearing appears normal Eyes PERRL, EOMs intact bilaterally and conjunctivae normal Eyes Narrative: No scleral icterus Neck no lymphadenopathy, supple and no JVD Neck Narrative: Trachea midline Resp normal respiratory effort, no retractions, no use of accessory muscles and clear to auscultation bilaterally Auscultation: Negative for crackles, rales, rhonchi or wheezes Cardio regular rate, regular rhythm, S1 normal heart sound, S2 normal heart sound, no murmurs, no rub, no gallops, no clicks and no JVD GI normal to inspection, nondistended, normoactive bowel sounds, soft to palpation, non-tender and non-distended; Negative for hepatosplenomegaly Extremity no clubbing, cyanosis or edema Peripheral Pulses: Yes pulses 2+ throughout Skin no rashes or lesions noted, no wounds, skin turgor normal, no jaundice, no petechiae and no mottling Neuro CN's II-XII intact bilaterally, moves all extremities and no focal motor deficits Neuro Narrative: Generalized weakness with no focal deficits, per family speech is normalizing however somewhat garbled compared to baseline still Sensorium / Orientation: alert Results Lab / Micro Data Attestation: I reviewed the patient's lab results. Result Diagrams: 08/14/21 09:20 08/14/21 09:20 Labs: Laboratory Results - last 24 hr 08/14/21 09:20: WBC 9.2, RBC 4.14 L, Hgb 12.5 L, Hct 38.2 L, MCV 92.3, MCH 30.2, MCHC 32.7, RDW Std Deviation 40.5, RDW Coeff of Aria 11.9, Plt Count 188, MPV 9.0, Immature Gran % (Auto) 1.000 H, Neut % (Auto) 70.0, Lymph % (Auto) 13.6 L, [place] % (Auto) 8.6, Eos % (Auto) 6.3 H, Baso % (Auto) 0.5, Absolute Neuts (auto) 6.5, Absolute Lymphs (auto) 1.25, Nucleated RBC % 0 08/14/21 09:20: Sodium 133 L, Potassium 3.3 L, Chloride 98, Carbon Dioxide 25.0, Anion Gap 10, BUN 10, Creatinine 1.56 H, Estim Creat Clear Calc 71.39, Est GFR (MDRD) Af Amer 61, Est GFR (MDRD) Non-Af 50 L, BUN/Creatinine Ratio 6.4 L, Glucose 108 H, Calcium 9.0, Total Bilirubin 0.30, Direct Bilirubin 0.06, AST 14 L, ALT 20, Alkaline Phosphatase 97, Total Protein 7.0, Albumin 3.8, Globulin 3.2, Albumin/Globulin Ratio 1.2, Lipase 233 08/14/21 09:20: Lactic Acid 3.6 H* 08/14/21 09:20: Ammonia 26.0 Micro: Microbiology 08/14/21 09:50 Nasal Secretion SARS-CoV-2 & FLU Antigen (Rapid) - Final ABG Data ABG results: ABG 08/14/21 10:00 Specimen Type ART Sample Site L Radial pH 7.40 Bicarbonate Actual 22.8 Total CO2 24 Base Excess -2 O2 Saturation 95 O2 % 21 ABG pCO2 36.8 ABG pO2 73 L David Test Positive Radiology Impression Chest X-Ray 08/14/21 09:15 IMPRESSION: Poor inspiration with some bibasilar atelectasis. Electronically Signed: Roberto Ibarra MD at 9:58 EDT Reading Location ID and State: [id number] / [employer] Tel , Service support , Brain CT 08/14/21 09:16 IMPRESSION: Normal unenhanced CT scan of the brain. Electronically Signed: Roberto Ibarra MD at 9:51 EDT Reading Location ID and State: [id number] / [employer] Tel , Service support , Assessment & Plan Assessment/Plan (1) Hypokalemia: (2) Hyponatremia: (3) Acute kidney injury: (4) Encephalopathy: (5) Acidosis, lactic: (6) Acute dehydration: (7) Eosinophilia: PLAN: Acute metabolic encephalopathy -Etiology unclear at this point -Dehydration/possible UTI/history of seizure disorder -Appears markedly dry on admission compared to baseline renal function -UA is pending collection as patient has not yet been able to urinate and family does not want him straight cathed -We will start ceftriaxone empirically and discontinue if UA is not suggestive of infection -CT of the head is negative for any acute pathology -Rapid COVID and flu were negative -ABG was unremarkable -Monitor clinically however per family who was at the bedside on admission they indicate that he is improving since presentation Hypokalemia -P.o. replacement with 60 mill equivalents -Repeat BMP in a.m. -Check a.m. mag level JAYDON secondary to dehydration -Hold meloxicam -Baseline serum creatinine appears to be 0.7-0.9 -Current serum creatinine is 1.56 -Normal saline at 100 cc/h x 18 hours -Repeat BMP in a.m. -Patient evidently has issues with dehydration at baseline and this is a problem that they are currently working with his snf and correcting Lactic acidosis -Doubt sepsis or infectious etiology -Could also be related to seizure History of seizure disorder -? [place] Gestalt syndrome -Continue zonisamide -Continue Banzal -Continue Vimpat -Continue Onfi -Continue Epidiolex -Follows with neurology at [facility] -ER has talked to the neurologist that sees him primarily and based on the information they were given they do not feel that this is consistent with se izure pathology and suspect dehydration and possibly another etiology -Per family preference, they initially wanted transfer to a [facility] facility however review has no current available beds and we have not yet talked to hospitalist to accept for admission, family does indicate that they are okay with admission here and discharged from here if the patient clinically improves but if not they would like him transferred there. The patient has been accepted by Dr. Stringer who is a hospitalist. Osteoarthritis -Hold meloxicam with current JAYDON Obesity -Recommend weight loss -Complicates treatment, prognosis, outcomes Dementia -Continue donepezil Depression -Continue Lexapro DVT prophylaxis -Heparin 3 times daily -SCDs CODE STATUS -Full code as per discussion with sister in the emergency department Charges/Coding Visit Charges Inpatient E&M: 55952 Init Hosp L3
--- NOTE | 2021-08-14 15:28 | NURSING ---
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 dr. pinto in room for admission. report called to floor and no questions. pt awake in bed alert and eating sandwich and cookies. at times not interested in responding and keeps feeding self with no diff. noted other than tries to take too big at times
--- NOTE | 2021-08-14 15:50 | ED.RN ---
tried to do orthos but unable to production supervisor trainee place for long enough for check. no positive readings noted from laying to sitting however. home meds ran personally to pharmacy per renetta roland rn.
[2021-08-14] MEDS: 0.9% Normal Saline 1,000 ML 100 ML IV (17:05)
[2021-08-14] MEDS: Potassium Chloride Oral Tablet 20 MEQ 60 MEQ PO (17:05)
[2021-08-14] MEDS: Ceftriaxone 1 GM/50 ML BAG IV (18:13)
[2021-08-14] MEDS: CANNABIDIOL 100 MG/ML 350 MG PO ×2 (18:21→20:35)
[2021-08-14] MEDS: Lacosamide 100 MG Tablet 200 MG PO (20:36)
[2021-08-14] MEDS: ZONISAMIDE 100 MG CAPSULE 300 MG PO (20:38)
[2021-08-14] MEDS: Heparin Injection (Vial) 5,000 UNIT/ML VIAL 5000 UNIT SC (20:40)
[2021-08-14] MEDS: Aspirin E.C. 81 MG Tablet PO (20:40)
[2021-08-14] MEDS: Donepezil HCl 5 MG Tablet PO (20:40)
[2021-08-14] MEDS: Ammonium Lactate 225 gm Bottle 1 APPLIC TOPICAL (20:41)
[2021-08-14] MEDS: Docusate Sodium 100 MG Capsule PO (20:41)
[2021-08-15 02:10] VITALS: BP 128/82; PULSE 74; RESP 16; TEMP 36.6; O2SAT 97
[2021-08-15] MEDS: 0.9% Normal Saline 1,000 ML 100 ML IV (03:37)
[2021-08-15 03:59] VITALS: PULSE 82
[2021-08-15] MEDS: Heparin Injection (Vial) 5,000 UNIT/ML VIAL 5000 UNIT SC ×3 (05:43→21:31)
[2021-08-15 05:50] LABS: Absolute Lymphocyte Count 1.18 X10^3/uL (0.83-4.51); Absolute Neutrophil Count 4.2 X10^3/uL (2.0-7.7); Basophil# 0.04 X10^3/uL; Basophil% 0.7 % (0-1); Hematocrit 34.8 % (40-54); Hemoglobin 11.5 g/dL (13.0-16.5); Lymphocyte # 1.18 X10^3/ul (0.83-4.51); Lymphocyte % 19.2 % (19-41); Mean Corpuscular Hgb 30.5 pg (27.0-32.0); Mean Corpuscular Volume 92.3 fL (80-94); Mean Platelet Vol. 9.1 fl (6.2-12.0); Monocyte# 0.64 X10^3/uL; Monocyte% 10.4 % (0-10); NRBC Flagged by Analyzer 0 % (0-5); Neutrophil # 4.24 X10^3/uL (2.7-7.7); Platelet Count 155 K/mm3 (150-450); RBC Distribution Width CV 12.2 % (11.6-14.6); RBC Distribution Width SD 41.3 fl (35.1-43.9); Red Blood Count 3.77 M/mm3 (4.6-6.2); White Blood Count 6.1 K/mm3 (4.4-11.0)
[2021-08-15 06:11] LABS: Mucous, Urine 0 SEEN /hpf (<or=2+); Red Blood Cells-Urine 0 SEEN /hpf (0-5); Squamous Epithelial Cells - UA 0 SEEN /hpf (0-5)
[2021-08-15 06:17] LABS: Lactic Acid 0.7 mmol/L (0.4-1.9)
[2021-08-15 06:19] LABS: Color, Urine Yellow (Yellow); Glucose, Dipstick Normal (Normal); Ketone-Dipstick Negative (Negative); Leukocyte Esterase-Dipstick 25 /ul (Negative); Nitrite-Dipstick Negative (Negative); Occult Blood-Urine Negative /ul (Negative); Protein-Dipstick Negative (Negative); Urine Bilirubin Dipstick Negative (Negative); Urine Clarity Clear (Clear); Urine Urobilinogen Normal (Normal); Urine pH 6.5 (5.0 - 8.0)
[2021-08-15 06:29] LABS: AST(SGOT) 73 U/L (15-37); Alanine Aminotransfer ALT/SGPT 34 U/L (16-61); Alkaline Phosphatase 101 U/L (45-117); Anion Gap 5 (5-15); BUN 12 mg/dL (7-18); BUN/Creat Ratio 14.7 RATIO (10-20); Calcium,Total 7.9 mg/dL (8.5-10.1); Chloride 106 mmol/L (98-107); Creatinine, Serum 0.82 mg/dL (0.70-1.30); EST Glomerular Filtration Rate 106 mL/min (>60); Est Glom Filt Rate - Afr Amer 128 mL/min (>60); Estimated Creatinine Clearance 135.82 ml/min; Globulin 2.9 g/dL (2.2-4.2); Glucose 96 mg/dL (74-106); Magnesium 2.3 mg/dL (1.6-2.6); Phosphorus 2.8 mg/dL (2.5-4.9); Potassium 4.7 mmol/L (3.5-5.1); Protein, Total 5.9 g/dL (6.4-8.2); Sodium Level 134 mmol/L (136-145); Thyroid Stim Hormone (TSH) 0.97 uIU/mL (0.358-3.74)
[2021-08-15 06:29] LABS: Bacteria RARE /hpf (None Seen); White Blood Cells 0-5 SEEN /hpf (0-5)
[2021-08-15] MEDS: ZONISAMIDE 100 MG CAPSULE 300 MG PO ×2 (07:46→21:30)
[2021-08-15] MEDS: Escitalopram Oxalate 20 MG Tablet PO (07:48)
[2021-08-15] MEDS: Ammonium Lactate 225 gm Bottle 1 APPLIC TOPICAL ×2 (07:49→21:33)
[2021-08-15] MEDS: Docusate Sodium 100 MG Capsule PO ×2 (07:49→21:34)
[2021-08-15] MEDS: Cholecalciferol (VIT D3) 25 MCG TABLET (1,000 UNITS) 50 MCG PO (07:50)
[2021-08-15] MEDS: Lacosamide 100 MG Tablet 200 MG PO ×2 (07:56→21:38)
[2021-08-15] MEDS: CANNABIDIOL 100 MG/ML 350 MG PO ×3 (08:05→21:27)
[2021-08-15 08:07] VITALS: BP 111/68; PULSE 63; RESP 20; TEMP 35.8; O2SAT 99
--- NOTE | 2021-08-15 08:09 | NURSING ---
Pt sitting in chair waiting for Breakfast. Pt is restless and took Telemonitor off, does not want it back on. Will not let staff put it back on, will notify Hospitalist.
--- NOTE | 2021-08-15 11:06 | CASEMGMT ---
Social Work SW met with pt and sister Erika Luo and introduced self and role of SW. Pt sitting in bed watching TV. Erika providing information. Pt lives in a snf under [facility]. Erika states staff at snf provide all of pt care and are suppose to be within arms length when pt is ambulating. Erika and her sister Juany Vásquez are Co-Guardians of pt. Erika states plan if for pt to return to snf at time of discharge. Erika can provide transportation. No other concerns expressed at this time. SW will remain available should needs arise. Plan: Return to Shelter, when medically ready PHILL Dsouza
[2021-08-15] MEDS: Acetaminophen 325 MG Tablet 650 MG PO ×2 (11:14→21:25)
--- NOTE | 2021-08-15 11:33 | NURSING ---
Dr. Mary Wanted this nurse to ambulate pt to see how he does. Pt ambulated a short distance and was c/o knee pain. Tylenol recently given. Sister states she is concerned that when he fell at the half-way that maybe he injured his knees and that she would like it x-rayed.
[2021-08-15 13:36] VITALS: BP 101/48; PULSE 71; RESP 20; TEMP 36.8; O2SAT 98
--- NOTE | 2021-08-15 13:58 | RAD_ITS ---
STUDY: X-RAY - RIGHT KNEE REASON FOR EXAM: Male, 50 years old. KNEE PAIN TECHNIQUE: 3 view(s) of the knee. COMPARISON: None. FINDINGS: Normal visualized distal femur. Normal visualized proximal tibia and fibula. Normal proximal tibiofibular articulation. There is no demonstrated fracture. There is mild degenerative arthrosis of the medial femorotibial compartment. Normal lateral femorotibial compartment. There is mild degenerative arthrosis of the patellofemoral articulation. There is no demonstrated joint effusion. The soft tissue structures are unremarkable. RAD/Knee 3 Views IMPRESSION: Degenerative arthrosis. Electronically Signed: Sergei Geronimo MD at 15:49 EDT ,
--- NOTE | 2021-08-15 14:20 | PCM.PN.HOSP ---
Subjective Subjective Mentation is much improved and per discussion with his sister is back to his baseline. Unfortunately his gait is still not his baseline and he is very unstable. He had been complaining of some knee pain bilaterally. His sister reports that this is a chronic issue with him however he has had falls and therefore we will get some x-rays. The exam of his joints are not all that impressive and do not appear red hot or swollen. We will have to continue to monitor him here and reevaluate him further tomorrow for his gait instability. Objective Data Objective Data Vital Signs: Vital Signs Temp Pulse Resp BP Pulse Ox 98.2 F 71 20 H 101/48 L 98 08/15/21 13:36 08/15/21 13:36 08/15/21 13:36 08/15/21 13:36 08/15/21 13:36 Oxygen Flow Rate (L/min) 2 Oxygen Delivery Method Room Air Weight: 142.882 kg Body Mass Index (BMI) 37.3 Intake & Output: Intake and Output for Last 24 Hours 08/13/21 08/14/21 08/15/21 23:59 23:59 23:59 Intake Total 1418.33 / 1418.33 1871.67 / 1871.67 Output Total 1650 / 1650 Balance 1418.33 / 1418.33 221.67 / 221.67 Lab / Micro Data Result Diagrams: 08/15/21 05:40 08/15/21 05:40 Labs: Laboratory Results - last 24 hr 08/15/21 05:40: Lactic Acid 0.7 08/15/21 05:40: WBC 6.1, RBC 3.77 L, Hgb 11.5 L, Hct 34.8 L, MCV 92.3, MCH 30.5, MCHC 33.0, RDW Std Deviation 41.3, RDW Coeff of Aria 12.2, Plt Count 155, MPV 9.1, Immature Gran % (Auto) 0.700, Neut % (Auto) 69.0, Lymph % (Auto) 19.2, [place] % (Auto) 10.4 H, Eos % (Auto) 0.0, Baso % (Auto) 0.7, Absolute Neuts (auto) 4.2, Absolute Lymphs (auto) 1.18, Nucleated RBC % 0 08/15/21 05:40: Sodium 134 L, Potassium 4.7, Chloride 106, Carbon Dioxide 23.0, Anion Gap 5, BUN 12, Creatinine 0.82, Estim Creat Clear Calc 135.82, Est GFR (MDRD) Af Amer 128, Est GFR (MDRD) Non-Af 106, BUN/Creatinine Ratio 14.7, Glucose 96, Calcium 7.9 L, Phosphorus 2.8, Magnesium 2.3, Total Bilirubin 0.30, AST 73 H, ALT 34, Alkaline Phosphatase 101, Total Protein 5.9 L, Albumin 3.0 L, Globulin 2.9, Albumin/Globulin Ratio 1.0, TSH 0.97 08/15/21 05:52: Urine Color Yellow, Urine Clarity Clear, Urine pH 6.5, Ur Specific [place] 1.010, Urine Protein Negative, Urine Glucose (UA) Normal, Urine Ketones Negative, Urine Occult Blood Negative, Urine Nitrite Negative, Urine Bilirubin Negative, Urine Urobilinogen Normal, Ur Leukocyte Esterase 25 H, Urine RBC 0 SEEN, Urine WBC 0-5 SEEN, Ur Squamous Epith Cells 0 SEEN, Urine Bacteria RARE, Urine Mucus 0 SEEN Micro: Microbiology 08/14/21 09:50 Nasal Secretion SARS-CoV-2 & FLU Antigen (Rapid) - Final Physical Exam Const alert, no apparent distress, healthy appearing and well nourished Constitutional Narrative: Obese middle-aged white male sitting up in bed appears comfortable, interacts with me, shakes my hand physical vigorously, complains of knee pain during my evaluation, sister at bedside Exam Limitations: other limitations Nutritional Appearance: obese HEENT normocephalic, head/scalp atraumatic and moist oral mucous membranes HEENT Narrative: Mallampati 3, no thrush Head and Scalp: normocephalic Resp normal respiratory effort, no retractions, no use of accessory muscles and clear to auscultation bilaterally Auscultation: Negative for crackles, rales, rhonchi or wheezes Cardio regular rate, regular rhythm, S1 normal heart sound, S2 normal heart sound, no murmurs, no rub, no gallops, no clicks and no JVD GI normal to inspection, nondistended, normoactive bowel sounds, soft to palpation, non-tender and non-distended; Negative for hepatosplenomegaly Extremity no clubbing, cyanosis or edema Extremity Narrative: Bilateral knee joints evaluated, no redness, warmth, or significant swelling, no significant tenderness noted with palpation Peripheral Pulses: Yes pulses 2+ throughout Neuro CN's II-XII intact bilaterally, moves all extremities and no focal motor deficits Neuro Narrative: Speech is at his baseline, legs are wobbly, patient is impulsive which increases his risk Sensorium / Orientation: awake and alert Speech: speech normal Assessment & Plan Assessment/Plan (1) Hypokalemia: (2) Hyponatremia: (3) Acute kidney injury: (4) Encephalopathy: (5) Acidosis, lactic: (6) Acute dehydration: (7) Eosinophilia: (8) Gait instability: (9) Knee pain: PLAN: Acute metabolic encephalopathy -Resolved -CT of the head wears negative -COVID was negative -Suspect related to acute dehydration Hypokalemia -Resolved JAYDON secondary to dehydration -Resolved Lactic acidosis -Resolved Gait instability -This is improved but still persist -Patient on possible antiepileptic medications but I am unable to get levels here with an expedited result -Continue therapy services -Patient was complaining of some knee pain and therefore we will obtain x-rays of the joints Bilateral knee pain -Patient has a history of this -No signs of gout or infection -Check x-rays -Per sister he has had falls where he is landed on his knees in the recent history -Tylenol for pain History of seizure disorder -? [place] Gestalt syndrome -Continue zonisamide -Continue Banzal -Continue Vimpat -Continue Onfi -Continue Epidiolex -Follows with neurology at [facility] -ER has talked to the neurologist that sees him primarily and based on the information they were given they do not feel that this is consistent with seizure pathology and suspect dehydration and possibly another etiology -Per family preference, they initially wanted transfer to a [facility] facility however review has no current available beds and we have not yet talked to hospitalist to accept for admission, family does indicate that they are okay with admission here and discharged from here if the patient clinically improves but if not they would like him transferred there. The patient has been accepted by Dr. Stringer who is a hospitalist. Osteoarthritis -Hold meloxicam with current JAYDON Obesity -Recommend weight loss -Complicates treatment, prognosis, outcomes Dementia -Continue donepezil Depression -Continue Lexapro DVT prophylaxis -Heparin 3 times daily -SCDs CODE STATUS -Full code as per discussion with sister in the emergency department Charges/Coding Visit Charges Inpatient E&M: 55092 Subs Hosp L2
--- NOTE | 2021-08-15 14:21 | RAD_ITS ---
STUDY: X-RAY - LEFT KNEE REASON FOR EXAM: Male, 50 years old. knee pain TECHNIQUE: 3 view(s) of the knee. COMPARISON: None. FINDINGS: Normal visualized distal femur. Normal visualized proximal tibia and fibula. Normal proximal tibiofibular articulation. There is no demonstrated fracture. Normal medial femorotibial compartment. Normal lateral femorotibial compartment. Normal patellofemoral articulation. There is no demonstrated joint effusion. The soft tissue structures are unremarkable. RAD/Knee 3 Views IMPRESSION: 1. Normal x-ray examination of the knee. Electronically Signed: Sergei Geronimo MD at 15:49 EDT ,
[2021-08-15] MEDS: Donepezil HCl 5 MG Tablet PO (21:34)
[2021-08-15] MEDS: Aspirin E.C. 81 MG Tablet PO (21:35)
[2021-08-15 21:47] VITALS: BP 118/71; PULSE 92; RESP 18; TEMP 36.8; O2SAT 94
[2021-08-16 02:40] VITALS: BP 116/63; PULSE 80; RESP 16; TEMP 36.8; O2SAT 97
[2021-08-16] MEDS: Heparin Injection (Vial) 5,000 UNIT/ML VIAL 5000 UNIT SC (06:41)
[2021-08-16 07:07] LABS: Anion Gap 9 (5-15); BUN 14 mg/dL (7-18); BUN/Creat Ratio 15.2 RATIO (10-20); Calcium,Total 8.1 mg/dL (8.5-10.1); Chloride 109 mmol/L (98-107); Creatinine, Serum 0.92 mg/dL (0.70-1.30); EST Glomerular Filtration Rate 92 mL/min (>60); Est Glom Filt Rate - Afr Amer 111 mL/min (>60); Estimated Creatinine Clearance 121.06 ml/min; Glucose 85 mg/dL (74-106); Potassium 5.1 mmol/L (3.5-5.1); Sodium Level 136 mmol/L (136-145)
[2021-08-16] MEDS: Cholecalciferol (VIT D3) 25 MCG TABLET (1,000 UNITS) 50 MCG PO (08:00)
[2021-08-16] MEDS: ZONISAMIDE 100 MG CAPSULE 300 MG PO (08:00)
[2021-08-16] MEDS: Docusate Sodium 100 MG Capsule PO (08:01)
[2021-08-16] MEDS: Escitalopram Oxalate 20 MG Tablet PO (08:02)
[2021-08-16] MEDS: CANNABIDIOL 100 MG/ML 350 MG PO (08:05)
[2021-08-16] MEDS: Lacosamide 100 MG Tablet 200 MG PO (08:12)
[2021-08-16] MEDS: Ammonium Lactate 225 gm Bottle 1 APPLIC TOPICAL (08:15)
[2021-08-16 08:54] VITALS: BP 129/86; PULSE 56; RESP 16; TEMP 36.5; O2SAT 98
--- NOTE | 2021-08-16 09:58 | DS.PCM_ITS ---
Providers Date of Admission: 08/14/21 Primary Care Physician: Dr. Prosper Hooks MD Reason For Visit: METABOLIC ENCEPHALOPATHY Diagnosis Discharge Diagnosis (1) Hypokalemia: Status: Resolved Code(s): E87.6 - Hypokalemia (2) Hyponatremia: Status: Inactive Code(s): E87.1 - Hypo-osmolality and hyponatremia (3) Acute kidney injury: Status: Resolved Code(s): N17.9 - Acute kidney failure, unspecified (4) Encephalopathy: Status: Resolved Code(s): G93.40 - Encephalopathy, unspecified (5) Acidosis, lactic: Status: Resolved Code(s): E87.2 - Acidosis (6) Acute dehydration: Status: Resolved Code(s): E86.0 - Dehydration (7) Eosinophilia: Status: Resolved Code(s): D72.10 - Eosinophilia, unspecified (8) Gait instability: Status: Acute Code(s): R26.81 - Unsteadiness on feet (9) Knee pain: Status: Acute Code(s): M25.569 - Pain in unspecified knee Medications at Discharge Home Medications donepezil 5 mg PO DAILY@199912/12/19 escitalopram oxalate 20 mg PO DAILY@0800 12/12/19 ammonium lactate 1 applic TP BID 01/04/20 aspirin 81 mg PO DAILY@199901/04/20 Epidiolex 1 mg PO TID 08/14/21 cholecalciferol (vitamin D3) [Vitamin D3] 50 mcg PO DAILY 08/14/21 clobazam [Onfi] 20 mg PO DAILY 08/14/21 clobazam [Onfi] 30 mg PO QHS 08/14/21 docusate sodium 100 mg PO BID 08/14/21 lacosamide [Vimpat] 200 mg PO BID 08/14/21 lorazepam 1 mg PO DAILY PRN 08/14/21 meloxicam 15 mg PO DAILY 08/14/21 nystatin-triamcinolone 1 applic TOPICAL BID PRN 08/14/21 olopatadine 1 drp EACH EYE DAILY 08/14/21 rufinamide [Banzel] 800 mg PO BID 08/14/21 zonisamide 300 mg PO BID 08/14/21 Hospital Course Operations None Procedures None Summary of Care Provided Minutes Spent on Discharge: 36 Hospital Course: Mr. Hurtado is a 50-year-old male with MRDD who presented from his retirement to the emergency department at [facility] on 08/14/2021 with an altered level of consciousness. The patient has a known history of seizures and per his sister and niece who were at the bedside on admission he was having increased somnolence, garbled speech, and general lysed weakness at his retirement on the day of presentation. It does not sound like from their description he was having any seizure-like activity and he is on a significant amount of medication for his seizures. He follows up at [facility] for his epilepsy. He was evidently more lethargic on the morning of presentation when he awoke it took him a long time at the retirement to get dressed which is atypical for him and he was walking and then took 5 steps and collapsed. There is no syncopal episodes or injuries he just collapsed to the ground. The family and the retirement were concerned about his fatigue and lethargy and therefore sent him to the emergency department. Prior to that morning he was at his baseline functionally. Vital signs emergency department showed a temperature of 97.5. Initial blood pressure was 90/58 but with IV fluids his pressure improved to 127/84. Heart rate was 63, respiratory 16, and oxygen saturation was 98% on room air. His CBC showed a chronic stable anemia. No left shift was present. He did have a eosinophilia with a 6.3% eosinophil count, which resolved on repeat lab the following day. An ABG was obtained with his mental status and was unremarkable with pH of 7.4 a PCO2 of 36.8 a PO2 of 73 on room air. His chemistry profile showed mild hyponatremia which is chronic for him and his sodium at that time was 133. Potassium was low at 3.3 and his serum creatinine was elevated at 1.56. His baseline serum creatinine runs from 0.7-0.9. His lactic acid was 3.6 and this resolved on repeat to normal levels. His LFTs were unremarkable. His EKG shows normal sinus rhythm without any changes consistent with acute ischemia. Chest x-ray shows poor effort with some bibasilar atelectasis. CT of his head was unremarkable. Orthostatic vitals were unable to be performed secondary to patient's mental status. He was admitted to the medical floor where he has received IV hydration electrolyte repletion and physical and Occupational Therapy. On 08/15/2021 he was much better from a mental status but he was still unsteady on his feet. He complained of some knee pain and we did obtain x-rays of bilateral knee joints. The left x-ray was normal the right showed some degenerative arthritis but was otherwise unremarkable. By the a.m. of 08/16/2021 he remained at baseline with regards to his mental status and his ambulation and mobility improved back to baseline. We were able to discharge him home in stable condition on 08/16/2021. We have recommended he have an increased water intake as he was markedly dehydrated on admission and we have recommended that his retirement to get an additional 2.5 L on top of what he drinks at the work facility. Discharge diagnoses: Acute metabolic encephalopathy-resolved Hypokalemia-resolved JAYDON secondary to dehydration-resolved Lactic acidosis-resolved Gait instability-back to baseline Bilateral knee pain-resolved History of seizure disorder Osteoarthritis Obesity Dementia Depression Physical Exam Const alert, no apparent distress, healthy appearing and well nourished Constitutional Narrative: Obese middle-aged white male sitting up in bed appears comfortable, interacts with me General Appearance: cooperative, comfortable, well kempt and well developed Orientation / Consciousness: awake Exam Limitations: other limitations Nutritional Appearance: obese HEENT normocephalic, head/scalp atraumatic, hearing grossly normal bilaterally and moist oral mucous membranes HEENT Narrative: Mallampati 3, no thrush Eyes PERRL, EOMs intact bilaterally and conjunctivae normal Eyes Narrative: No scleral icterus Neck no lymphadenopathy, supple and no JVD Neck Narrative: Trachea midline Resp normal respiratory effort, no retractions, no use of accessory muscles and clear to auscultation bilaterally Auscultation: Negative for crackles, rales, rhonchi or wheezes Cardio regular rate, regular rhythm, S1 normal heart sound, S2 normal heart sound, no murmurs, no rub, no gallops, no clicks and no JVD GI normal to inspection, nondistended, normoactive bowel sounds, soft to palpation, non-tender and non-distended; Negative for hepatosplenomegaly Extremity no clubbing, cyanosis or edema Skin no rashes or lesions noted, no wounds, skin turgor normal, no jaundice, no petechiae and no mottling Neuro CN's II-XII intact bilaterally, moves all extremities and no focal motor deficits Neuro Narrative: Speech is at his baseline, legs are wobbly, patient is impulsive which increases his risk Sensorium / Orientation: awake and alert Speech: speech normal Weight / BMI Weight Weight: 142.882 kg Body Mass Index (BMI) 37.3 ABG / Lab / Microbiology Data Result Diagrams: 08/15/21 05:40 08/16/21 06:20 Laboratory: Laboratory Results - last 24 hr 08/16/21 06:20: Sodium 136, Potassium 5.1, Chloride 109 H, Carbon Dioxide 18.0 L , Anion Gap 9, BUN 14, Creatinine 0.92, Estim Creat Clear Calc 121.06, Est GFR (MDRD) Af Amer 111, Est GFR (MDRD) Non-Af 92, BUN/Creatinine Ratio 15.2, Glucose 85, Calcium 8.1 L Microbiology: Microbiology 08/15/21 05:52 Urine, Clean Catch Urine Culture - Preliminary Culture exhibits no growth. 08/14/21 09:50 Nasal Secretion SARS-CoV-2 & FLU Antigen (Rapid) - Final Radiography Diagnostic Testing: Radiology Impression Knee X-Ray 08/15/21 13:58 IMPRESSION: Degenerative arthrosis. Electronically Signed: Sergei Geronimo MD at 15:49 EDT Reading Location ID and State: [address] [place] [address] , Service support , Knee X-Ray 08/15/21 14:21 IMPRESSION: 1. Normal x-ray examination of the knee. Electronically Signed: Sergei Geronimo MD at 15:49 EDT , D/C Instructions Discharge Diet: No restrictions Discharge Activity: Return to Normal Activity Meaningful Use Info Meaningful Use Diagnoses (Choose all that apply): None applicable Discharge Plan Admission Admit Date/Time: 08/14/21 14:50 Primary Reason for Your Visit: Mental status change Attending Provider: Harriet Mary Primary Care Provider: Prosper Hooks Instructions Additional Instructions / Restrictions: 1. Please assure patient gets 2.5 L of noncaffeinated fluid while at home in addition to the fluids he had pains while at work Discharge Orders/Prescriptions Prescriptions: Continued donepezil 10 MG tablet 5 mg PO DAILY@1999 RF: 0 escitalopram oxalate 20 MG tablet 20 mg PO DAILY@0800 RF: 0 ammonium lactate 225 GM lotion 1 applic TP BID RF: 0 aspirin 81 MG tablet,delayed release (DR/EC) 81 mg PO DAILY@1999 RF: 0 meloxicam 15 mg Tablet 15 mg PO DAILY RF: 0 lorazepam 1 mg Tablet 1 mg PO DAILY PRN (Reason: Seizures) RF: 0 olopatadine 0.2 % Drops 1 drp EACH EYE DAILY RF: 0 cholecalciferol (vitamin D3) [Vitamin D3] 50 mcg (2,000 unit) Capsule 50 mcg PO DAILY RF: 0 rufinamide [Banzel] 400 mg Tablet 800 mg PO BID RF: 0 clobazam [Onfi] 20 mg Tablet 20 mg PO DAILY RF: 0 clobazam [Onfi] 20 mg Tablet 30 mg PO QHS RF: 0 zonisamide 100 mg Capsule 300 mg PO BID RF: 0 docusate sodium 100 mg Tablet 100 mg PO BID RF: 0 lacosamide [Vimpat] 200 mg Tablet 200 mg PO BID RF: 0 Epidiolex 100 mg/mL Solution 1 mg PO TID RF: 0 nystatin-triamcinolone Cream 1 applic TOPICAL BID PRN (Reason: yeast) RF: 0 Referrals / Follow Up: Prosper Hooks MD [Primary Care Provider] - Within 1 Week Disposition Disposition (needs filled in before D/C Order can be placed): Home, Self Care Charges/Coding Visit Charges Inpatient E&M: 40840 Disch Hosp
== END 2021-08-16 10:48 | disposition home or self-care (01) | DRG 640 ==
LOC: ED 14:55 → MS3 15:22
PROVIDERS: Nurse Practitioner; Admitting Provider Internal Medicine; Emergency Provider Emergency Medicine; PCP Family Medicine; Visit Provider Internal Medicine
DX: E86.0 Dehydration (principal); G93.41 Metabolic encephalopathy; N17.9 Acute kidney failure, unspecified; E87.2 Acidosis; D72.10 Eosinophilia, unspecified; F03.90 Unspecified dementia, unspecified severity, without behavioral disturbance, psychotic disturbance, mood disturbance, and anxiety; G40.909 Epilepsy, unspecified, not intractable, without status epilepticus; E87.1 Hypo-osmolality and hyponatremia; M19.90 Unspecified osteoarthritis, unspecified site; I10 Essential (primary) hypertension; E87.6 Hypokalemia; F41.9 Anxiety disorder, unspecified; D64.9 Anemia, unspecified; M25.569 Pain in unspecified knee; Z68.37 Body mass index [BMI] 37.0-37.9, adult; F32.A Depression, unspecified; Z79.82 Long term (current) use of aspirin; Z20.822 Contact with and (suspected) exposure to COVID-19; F79 Unspecified intellectual disabilities; Z79.899 Other long term (current) drug therapy; E66.9 Obesity, unspecified
CPT/HCPCS: 36415; 36600; 70450; 71045; 73562; 80048; 80053; 80076; 81001; 82140; 82803; 83605; 83690; 83735; 84100; 84443; 85025; 87086; 87428; 93005; 97162; 97166; 99285; J7030; A4216

== ENCOUNTER 2024-04-16 20:39 | Emergency (ER) | payer MEDICARE, MEDICAID, SELFPAY ==
[2024-04-16 20:40] VITALS: BP 143/79; PULSE 90; RESP 20; TEMP 36.4; O2SAT 97; BMI 39.0
--- NOTE | 2024-04-16 20:43 | EDS_ITS ---
HPI History of Present Illness Chief Complaint: Seizure [facility] Medical History (Updated 01/01/22 @ 14:22 by Aleks MARTINEZ, PA) COVID-19 Developmental disability Depression Anxiety Chronic hyponatremia Dementia Chronic anemia Seizures Home Medications ?Medication ?Instructions ?Recorded ?Last Taken ?Type donepezil 10 mg tablet 5 mg PO DAILY@1999 MEMORY 12/12/19 01/03/20 History escitalopram oxalate 20 mg tablet 20 mg PO DAILY@0800 DEPRESSION 12/12/19 01/04/20 History ammonium lactate 12 % lotion 1 applic TP BID FEET 01/04/20 01/04/20 History aspirin 81 mg tablet,delayed 81 mg PO DAILY@1999 HEALTH 01/04/20 01/03/20 History release MAINTENANCE cannabidiol 100 mg/mL oral 1 mg PO TID 08/14/21 Unknown History solution (Epidiolex) cholecalciferol (vitamin D3) 50 50 mcg PO DAILY 08/14/21 Unknown History mcg (2,000 unit) capsule (Vitamin D3) clobazam 20 mg tablet (Onfi) 20 mg PO DAILY 08/14/21 Unknown History clobazam 20 mg tablet (Onfi) 30 mg PO QHS 08/14/21 Unknown History docusate sodium 100 mg tablet 100 mg PO BID 08/14/21 Unknown History lacosamide 200 mg tablet (Vimpat) 200 mg PO BID 08/14/21 Unknown History lorazepam 1 mg tablet 1 mg PO DAILY PRN Seizures 08/14/21 Unknown History meloxicam 15 mg tablet 15 mg PO DAILY 08/14/21 Unknown History nystatin-triamcinolone topical 1 applic topical BID PRN yeast 08/14/21 Unknown History cream olopatadine 0.2 % eye drops 1 drp EACH EYE DAILY 08/14/21 Unknown History rufinamide 400 mg tablet (Banzel) 800 mg PO BID 08/14/21 Unknown History zonisamide 100 mg capsule 300 mg PO BID 08/14/21 Unknown History dexamethasone 6 mg tablet 6 mg PO DAILY #5 tabs 01/01/22 Unknown Rx Allergy/AdvReac Type Severity Reaction Status Date / Time divalproex sodium (From Allergy PT UNSURE Verified 01/04/20 16:58 Depakote) OF REACTION felbamate (From Felbatol) Allergy PT UNSURE Verified 01/04/20 16:58 OF REACTION Social History (Updated 08/14/21 @ 15:[address] Harriet Mary, DO) household members: other details: retirement housing: other details: retirement Smoking Status: Never smoker alcohol intake: never substance use type: does not use Discharge Plan Triage Chief Complaint: Seizure ED Provider: Jason Pierce Dx/Rx/DC Orders Prescriptions: No Action dexamethasone 6 mg tablet 6 mg PO DAILY Qty: 5 0RF donepezil 10 MG tablet 5 mg PO DAILY@1999 escitalopram oxalate 20 MG tablet 20 mg PO DAILY@0800 ammonium lactate 225 GM lotion 1 applic TP BID aspirin 81 MG tablet,delayed release (DR/EC) 81 mg PO DAILY@1999 meloxicam 15 mg Tablet 15 mg PO DAILY lorazepam 1 mg Tablet 1 mg PO DAILY PRN (Reason: Seizures) Rx Instructions: take 1mg for 2 seizures within 4hrs, may repeat 1 dose in 4hrs prn. max dose 2mg/day olopatadine 0.2 % Drops 1 drp EACH EYE DAILY cholecalciferol (vitamin D3) [Vitamin D3] 50 mcg (2,000 unit) Capsule 50 mcg PO DAILY rufinamide [Banzel] 400 mg Tablet 800 mg PO BID clobazam [Onfi] 20 mg Tablet 20 mg PO DAILY clobazam [Onfi] 20 mg Tablet 30 mg PO QHS zonisamide 100 mg Capsule 300 mg PO BID docusate sodium 100 mg Tablet 100 mg PO BID lacosamide [Vimpat] 200 mg Tablet 200 mg PO BID Epidiolex 100 mg/mL Solution 1 mg PO TID Rx Instructions: pt takes 3.5ml tid nystatin-triamcinolone Cream 1 applic TOPICAL BID PRN (Reason: yeast) Primary Care Provider: Prosper Hooks Referrals: Prosper Hooks MD [Primary Care Provider] - Print Language: [place]
--- NOTE | 2024-04-16 20:59 | EX.ED.DYSGE1 ---
HPI <MICHELLE Curiel - Last Filed: 04/16/24 22:09> History of Present Illness Chief Complaint: Seizure Narrative Narrative: 53-year-old male with past medical history of seizure disorder and intellectual disability was brought in by his shelter caregiver due to multiple seizures. He had 5 separate seizures each lasting about 30 seconds where his entire body tensed up. After the first 3 seizures he received 1 mg of lorazepam by mouth. When he had 2 additional seizures he received a second dose of lorazepam 1 mg and has had no further seizure activity. He is acting at his normal baseline but it is a shelter policy that if they have to give 2 rescue doses of lorazepam he is taken to the emergency department. Patient lost control of his urine during the seizure. He had no fall or head trauma. He had quick return to baseline. He has no recent fever, vomiting, diarrhea, or urinary symptoms. He has seizures almost every month. He is on 5 different antiepileptic medications including Epidiolex, rufinamide, lacosamide, zonisamide, Onfi, and rescue lorazepam as needed. [facility], [facility] <MICHELLE Curiel - Last Filed: 04/16/24 22:09> [facility] Medical History (Updated 04/16/24 @ 21:00 by MICHELLE Curiel) COVID-19 Developmental disability Depression Anxiety Chronic hyponatremia Dementia Chronic anemia Seizures Home Medications ?Medication ?Instructions ?Recorded ?Last Taken ?Type donepezil 10 mg tablet 5 mg PO DAILY@1999 MEMORY 12/12/19 01/03/20 History escitalopram oxalate 20 mg tablet 20 mg PO DAILY@0800 DEPRESSION 12/12/19 01/04/20 History ammonium lactate 12 % lotion 1 applic TP BID FEET 01/04/20 01/04/20 History aspirin 81 mg tablet,delayed 81 mg PO DAILY@1999 HEALTH 01/04/20 01/03/20 History release MAINTENANCE cannabidiol 100 mg/mL oral 400 mg PO TID 08/14/21 Unknown History solution (Epidiolex) cholecalciferol (vitamin D3) 50 50 mcg PO DAILY 08/14/21 Unknown History mcg (2,000 unit) capsule (Vitamin D3) clobazam 20 mg tablet (Onfi) 20 mg PO DAILY 08/14/21 Unknown History clobazam 20 mg tablet (Onfi) 30 mg PO QHS 08/14/21 Unknown History lacosamide 200 mg tablet (Vimpat) 200 mg PO BID 08/14/21 Unknown History lorazepam 1 mg tablet 1 mg PO DAILY PRN Seizures 08/14/21 Unknown History olopatadine 0.2 % eye drops 1 drp EACH EYE BID 08/14/21 Unknown History rufinamide 400 mg tablet (Banzel) 800 mg PO BID 08/14/21 Unknown History zonisamide 100 mg capsule 300 mg PO BID 08/14/21 Unknown History fluoride (sodium) 1.1 % dental 1 applic dental DAILY 04/16/24 Unknown History cream (Denta 5000 Plus) omega 4-pio-xqm-fish oil 300 1 cap PO DAILY 04/16/24 Unknown History mg-1,000 mg capsule pantoprazole 40 mg tablet,delayed 40 mg PO DAILY 04/16/24 Unknown History release psyllium 2 tsp PO DAILY 04/16/24 Unknown History Allergy/AdvReac Type Severity Reaction Status Date / Time divalproex sodium (From Allergy PT UNSURE Verified 04/16/24 20:47 Depakote) OF REACTION felbamate (From Felbatol) Allergy PT UNSURE Verified 04/16/24 20:47 OF REACTION Social History (Updated 08/14/21 @ 15:[address] Harriet Mary, DO) household members: other details: skilled nursing housing: other details: skilled nursing Smoking Status: Never smoker alcohol intake: never substance use type: does not use ROS <MICHELLE Curiel - Last Filed: 04/16/24 22:09> ROS ED ROS Narrative According to caregiver there is been no recent fever, vomiting, diarrhea, cough. EXAM <MICHELLE Curiel - Last Filed: 04/16/24 22:09> Physical Exam Narrative Exam Narrative: CONST: Patient sitting in no acute distress. EYES: Normal inspection. NECK: Normal inspection. RESP: No respiratory distress, CTAB. CVS: Regular rate and rhythm, no murmur, no gallop. ABD: Soft and nontender, no guarding or rebound, nondistended. SKIN: Color normal, no rash, warm, dry, intact. EXTREMITIES: Normal appearance, no pedal edema. NEURO: Alert and looking around the room, states his name, listening to music with headphones. PSYCH: Normal affect. Const Vital Signs: 04/16/24 20:40 04/16/24 21:40 04/16/24 22:00 Temperature 97.6 F L Temperature Source Oral Pulse Rate 90 88 76 Respiratory Rate 20 H 17 18 Blood Pressure 143/79 H 165/48 H Blood Pressure Mean 100 87 Pulse Ox 97 97 97 Oxygen Delivery Method Room Air Room Air Room Air <Dr. Jason Pierce DO - Last Filed: 04/16/24 23:26> Physical Exam Narrative Exam Narrative: CONST: Patient sitting in no acute distress. EYES: Normal inspection. NECK: Normal inspection. RESP: No respiratory distress, CTAB. CVS: Regular rate and rhythm, no murmur, no gallop. ABD: Soft and nontender, no guarding or rebound, nondistended. SKIN: Color normal, no rash, warm, dry, intact. EXTREMITIES: Normal appearance, no pedal edema. NEURO: Alert and looking around the room, states his name, listening to music with headphones. Neuroexam at baseline per shelter staff. PSYCH: Normal affect. Const Vital Signs: 04/16/24 20:40 04/16/24 21:40 04/16/24 22:00 Temperature 97.6 F L Temperature Source Oral Pulse Rate 90 88 76 Respiratory Rate 20 H 17 18 Blood Pressure 143/79 H 165/48 H Blood Pressure Mean 100 87 Pulse Ox 97 97 97 Oxygen Delivery Method Room Air Room Air Room Air MDM <MICHELLE Curiel - Last Filed: 04/16/24 22:09> [facility] Narrative Medical decision making narrative: 49-year-old male with complex medical history of dementia and seizure disorder on multiple AEDs presents with increased frequency of seizure today requiring 2 rescue lorazepam doses. It is agreeable policy to bring him in if he uses 2 doses. He is back to baseline. No history of trauma. He is awake alert in no distress with stable vital signs. He has a nonfocal neurological exam. Metabolic workup and CT scan of the head are negative. Urinalysis negative. Exact cause of his increased frequency of seizures is not clear however he has seizures monthly and is on multiple medications, he has not had any seizures here or required any medications and I feel he can be discharged back to his shelter and follow-up with his neurologist. Lab Data Attestation: I reviewed the patient's lab results. Labs: Laboratory Results - last 24 hr 04/16/24 04/16/24 21:08 21:28 WBC 6.8 RBC 4.75 Hgb 13.8 Hct 41.9 MCV 88.2 MCH 29.1 MCHC 32.9 RDW Std Deviation 40.3 RDW Coeff of Aria 12.4 Plt Count 149 L MPV 10.5 Immature Gran % (Auto) 1.000 H Neut % (Auto) 67.0 Lymph % (Auto) 22.1 Heard % (Auto) 9.0 Eos % (Auto) 0.3 Baso % (Auto) 0.6 Absolute Neuts (auto) 4.5 Absolute Lymphs (auto) 1.50 Nucleated RBC % 0 Differential Comment SCANNED Sodium 132 L Potassium 4.2 Chloride 102 Carbon Dioxide 24.0 Anion Gap 6 BUN 9 Creatinine 1.14 Estim Creat Clear Calc 123.13 Est GFR (MDRD) Af Amer 86 Est GFR (MDRD) Non-Af 71 BUN/Creatinine Ratio 7.9 L Glucose 99 Calcium 9.0 Total Bilirubin 0.40 AST 34 ALT 22 Alkaline Phosphatase 128 H Total Protein 7.4 Albumin 3.5 Globulin 3.9 Albumin/Globulin Ratio 0.9 Urine Color Yellow Urine Clarity Clear Urine pH 7.0 Ur Specific [place] 1.010 Urine Protein Negative Urine Glucose (UA) Normal Urine Ketones Negative Urine Occult Blood Negative Urine Nitrite Negative Urine Bilirubin Negative Urine Urobilinogen Normal Ur Leukocyte Esterase Negative Urine RBC 0 SEEN Urine WBC 0 SEEN Ur Squamous Epith Cells 0 SEEN Urine Bacteria 0 SEEN Urine Mucus 0 SEEN Radiography Diagnostic Testing: Clinical Impression(s) from Imaging Studies Brain CT 04/16/24 21:03 IMPRESSION: No acute intracranial abnormality. Electronically Signed: Bobby Mahan MD at 22:43 EST , <Dr. Jason Pierce, DO - Last Filed: 04/16/24 23:26> [facility] Narrative Medical decision making narrative: 49-year-old male with complex medical history of dementia and seizure disorder on multiple AEDs presents with increased frequency of seizure today requiring 2 rescue lorazepam doses. It is agreeable policy to bring him in if he uses 2 doses. He is back to baseline. No history of trauma. He is awake alert in no distress with stable vital signs. He has a nonfocal neurological exam. Metabolic workup and CT scan of the head are negative. Urinalysis negative. Exact cause of his increased frequency of seizures is not clear however he has seizures monthly and is on multiple medications, he has not had any seizures here or required any medications and I feel he can be discharged back to his shelter and follow-up with his neurologist. ED attending note: I evaluated the patient in conjunction with the ELYSIA. I agree with his/her statements and above findings. I have personally performed a face to face assessment of the patient and have reviewed the ELYSIA Note. I performed a substantive portion of the visit including all aspects of the following. I personally saw the patient performed chart review, physical exam, reviewed labs, imaging (if obtained), and formulated a treatment and management plan. CT scan of the head was negative for ICH CBC without leukocytosis, severe anemia, no thrombocytopenia. CMP without evidence of acute kidney injury, significant electrolyte abnormality, anion gap to suggest end organ hypo-perfusion, no evidence of metabolic acidosis with a normal bicarbonate, no evidence of hepatobiliary obstructive pathology. The patient is back to baseline. He is compliant with meds. Likely breakthrough seizure. Per patient's shelter staff he has appoint with his neurologist this week. I encouraged him to keep that appointment. He is appropriate for discharge home. No further seizures here. No definitive evidence of status epilepticus despite reports of multiple seizures. This appears acute on chronic. Patient will need to follow with outpatient neurology. This note was generated with [employer] dictation software. It may contain incorrect words, spelling, and punctuation that were not noted in review of the chart prior to signing. Lab Data Labs: Laboratory Results - last 24 hr 04/16/24 04/16/24 21:08 21:28 WBC 6.8 RBC 4.75 Hgb 13.8 Hct 41.9 MCV 88.2 MCH 29.1 MCHC 32.9 RDW Std Deviation 40.3 RDW Coeff of Aria 12.4 Plt Count 149 L MPV 10.5 Immature Gran % (Auto) 1.000 H Neut % (Auto) 67.0 Lymph % (Auto) 22.1 Heard % (Auto) 9.0 Eos % (Auto) 0.3 Baso % (Auto) 0.6 Absolute Neuts (auto) 4.5 Absolute Lymphs (auto) 1.50 Nucleated RBC % 0 Differential Comment SCANNED Sodium 132 L Potassium 4.2 Chloride 102 Carbon Dioxide 24.0 Anion Gap 6 BUN 9 Creatinine 1.14 Estim Creat Clear Calc 123.13 Est GFR (MDRD) Af Amer 86 Est GFR (MDRD) Non-Af 71 BUN/Creatinine Ratio 7.9 L Glucose 99 Calcium 9.0 Total Bilirubin 0.40 AST 34 ALT 22 Alkaline Phosphatase 128 H Total Protein 7.4 Albumin 3.5 Globulin 3.9 Albumin/Globulin Ratio 0.9 Urine Color Yellow Urine Clarity Clear Urine pH 7.0 Ur Specific [place] 1.010 Urine Protein Negative Urine Glucose (UA) Normal Urine Ketones Negative Urine Occult Blood Negative Urine Nitrite Negative Urine Bilirubin Negative Urine Urobilinogen Normal Ur Leukocyte Esterase Negative Urine RBC 0 SEEN Urine WBC 0 SEEN Ur Squamous Epith Cells 0 SEEN Urine Bacteria 0 SEEN Urine Mucus 0 SEEN Radiography Diagnostic Testing: Clinical Impression(s) from Imaging Studies Brain CT 04/16/24 21:03 IMPRESSION: No acute intracranial abnormality. Electronically Signed: Bobby Mahan MD at 22:43 EST , Discharge Plan Triage Chief Complaint: Seizure ED Midlevel Provider: Nicole Kemp ED Provider: Jason Pierce Dx/Rx/DC Orders Clinical Impression: Breakthrough seizure, History of epilepsy Prescriptions: No Action donepezil 10 MG tablet 5 mg PO DAILY@1999 escitalopram oxalate 20 MG tablet 20 mg PO DAILY@0800 ammonium lactate 225 GM lotion 1 applic TP BID aspirin 81 MG tablet,delayed release (DR/EC) 81 mg PO DAILY@1999 lorazepam 1 mg Tablet 1 mg PO DAILY PRN (Reason: Seizures) Rx Instructions: take 1mg for 2 seizures within 4hrs, may repeat 1 dose in 4hrs prn. max dose 2mg/day olopatadine 0.2 % Drops 1 drp EACH EYE BID cholecalciferol (vitamin D3) [Vitamin D3] 50 mcg (2,000 unit) Capsule 50 mcg PO DAILY rufinamide [Banzel] 400 mg Tablet 800 mg PO BID clobazam [Onfi] 20 mg Tablet 20 mg PO DAILY clobazam [Onfi] 20 mg Tablet 30 mg PO QHS zonisamide 100 mg Capsule 300 mg PO BID lacosamide [Vimpat] 200 mg Tablet 200 mg PO BID Epidiolex 100 mg/mL Solution 400 mg PO TID Rx Instructions: pt takes 3.5ml in AM and afternoon and 4ml at bedtime psyllium Powder 2 tsp PO DAILY Rx Instructions: takes 2 teaspoonfuls in 8oz of water or fruit juice every day omega 4-gvc-isj-fish oil 300-1,000 mg capsule 1 cap PO DAILY pantoprazole 40 mg tablet,delayed release (DR/EC) 40 mg PO DAILY fluoride (sodium) [Denta 5000 Plus] 1.1 % cream 1 applic dental DAILY Rx Instructions: use to brush teeth once every day at 8pm Primary Care Provider: Prosper Hooks Referrals: Prosper Hooks MD [Primary Care Provider] - Activity Restrictions/Additional Instructions: Today his testing and CT scan of brain were unremarkable. I recommend continuing his epilepsy seizures as prescribed and following up with his doctor. Print Language: Welsh Disposition Disposition: Home, Self Care
--- NOTE | 2024-04-16 21:03 | CT_ITS ---
EXAM: CT HEAD WITHOUT INTRAVENOUS CONTRAST CLINICAL INDICATION: seizures TECHNIQUE: Multiple axial images were obtained of the head without intravenous contrast. This CT exam was performed using one or more of the following dose reduction techniques: automated exposure control, adjustment of the mA and/or kV according to patient size, and/or use of iterative reconstruction technique. RADIATION DOSE: CTDIvol = 44.99 mGy, DLP = 947.97 mGy-cm COMPARISON: 08/14/2021. FINDINGS: BRAIN AND EXTRA-AXIAL SPACES: Unremarkable. No intra- or extra-axial hemorrhage. No evidence of acute infarct. No intracranial mass or mass effect. There is preservation of the morales/white matter interface. Posterior fossa structures are unremarkable. Ventricles are appropriate for age. No hydrocephalus. Basal cisterns are patent. BONES/JOINTS: Unremarkable. No discrete lytic or blastic abnormalities. SINUSES: Unremarkable as visualized. Clear. MASTOID AIR CELLS: Unremarkable. Clear. ORBITS: Visualized globes, extraocular muscles, optic nerves and retrobulbar fat appear unremarkable. CT/Brain/Head without Contrast IMPRESSION: No acute intracranial abnormality. Electronically Signed: Bobby Mahan MD at 22:43 EST ,
[2024-04-16 21:26] LABS: Absolute Neutrophil Count 4.5 X10^3/uL (2.0-7.7); Basophil# 0.04 X10^3/uL; Basophil% 0.6 % (0-1); Eosinophil# 0.02 X10^3/uL; Eosinophils% 0.3 % (0-5); Hematocrit 41.9 % (40-54); Hemoglobin 13.8 g/dL (13.0-16.5); Lymphocyte % 22.1 % (19-41); Mean Corp Hgb Conc 32.9 g/dL (32-36); Mean Corpuscular Hgb 29.1 pg (27.0-32.0); Mean Corpuscular Volume 88.2 fL (80-94); Mean Platelet Vol. 10.5 fl (6.2-12.0); Monocyte# 0.61 X10^3/uL; NRBC Flagged by Analyzer 0 % (0-5); Neutrophil # 4.54 X10^3/uL (2.7-7.7); POSITIVE COUNT YES; Platelet Count 149 K/mm3 (150-450); RBC Distribution Width CV 12.4 % (11.6-14.6); RBC Distribution Width SD 40.3 fl (35.1-43.9); Red Blood Count 4.75 M/mm3 (4.6-6.2); White Blood Count 6.8 K/mm3 (4.4-11.0)
[2024-04-16 21:35] LABS: Bacteria 0 SEEN /hpf (None Seen); Mucous, Urine 0 SEEN /hpf (<or=2+); Red Blood Cells-Urine 0 SEEN /hpf (0-5); Squamous Epithelial Cells - UA 0 SEEN /hpf (0-5); White Blood Cells 0 SEEN /hpf (0-5)
[2024-04-16 21:36] LABS: Color, Urine Yellow (Yellow); Glucose, Dipstick Normal (Normal); Ketone-Dipstick Negative (Negative); Leukocyte Esterase-Dipstick Negative /ul (Negative); Nitrite-Dipstick Negative (Negative); Occult Blood-Urine Negative /ul (Negative); Protein-Dipstick Negative (Negative); Urine Bilirubin Dipstick Negative (Negative); Urine Clarity Clear (Clear); Urine Urobilinogen Normal (Normal)
[2024-04-16 21:40] VITALS: PULSE 88; RESP 17; O2SAT 97
[2024-04-16 21:46] LABS: ALB/GLOB Ratio 0.9 RATIO (0.9-2.4); AST(SGOT) 34 U/L (15-37); Alanine Aminotransfer ALT/SGPT 22 U/L (16-61); Albumin, Serum 3.5 g/dL (3.2-5.0); Alkaline Phosphatase 128 U/L (45-117); Anion Gap 6 (5-15); BUN 9 mg/dL (7-18); BUN/Creat Ratio 7.9 RATIO (10-20); Chloride 102 mmol/L (98-107); Creatinine, Serum 1.14 mg/dL (0.70-1.30); EST Glomerular Filtration Rate 71 mL/min (>60); Est Glom Filt Rate - Afr Amer 86 mL/min (>60); Estimated Creatinine Clearance 123.13 ml/min; Globulin 3.9 g/dL (2.2-4.2); Glucose 99 mg/dL (74-106); Potassium 4.2 mmol/L (3.5-5.1); Protein, Total 7.4 g/dL (6.4-8.2); Sodium Level 132 mmol/L (136-145)
[2024-04-16 21:56] LABS: Differential Indicated SCAN CRITERIA MET
[2024-04-16 22:00] VITALS: BP 165/48; PULSE 76; RESP 18; O2SAT 97
--- NOTE | 2024-04-16 22:10 | ED.RN ---
Spoke to legal guardian via phone call to get permission to treat pt. Questions/concerns answered.
[2024-04-16 22:14] LABS: Differential Comment SCANNED
[2024-04-16 23:00] VITALS: PULSE 80; RESP 15; O2SAT 97
== END 2024-04-16 23:44 | disposition home or self-care (01) ==
PROVIDERS: Physician Assistant; Emergency Provider Emergency Medicine; PCP Family Medicine; Visit Provider Emergency Medicine
DX: R56.9 Unspecified convulsions (principal); F03.90 Unspecified dementia, unspecified severity, without behavioral disturbance, psychotic disturbance, mood disturbance, and anxiety; F32.A Depression, unspecified; F41.9 Anxiety disorder, unspecified; Z86.16 Personal history of COVID-19; Z79.899 Other long term (current) drug therapy; Z79.82 Long term (current) use of aspirin
CPT/HCPCS: 70450; 80053; 81001; 85025; 99285; P9612